=== PATIENT | female | born 1985 | race Caucasian/White ===

== ENCOUNTER 2018-01-18 11:05 | Day surgery (SDC) | payer MEDICAID, SELFPAY ==
[2018-01-18 11:37] VITALS: BP 129/84; PULSE 77; RESP 16; TEMP 36.9; O2SAT 98; BMI 26.4
[2018-01-18] MEDS: Gabapentin 600 MG Tablet PO (11:44)
--- NOTE | 2018-01-18 12:45 | OV_PTH ---
PATIENT: KEYONA STARKS LOC: [facility] [place] U#:[id number] AGE/SX: 32/F ROOM: RE01/18/[address]: Dr. 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 AM:abdirahman 01/22/18 MICROSCOPIC DESCRIPTION Slides are reviewed. GROSS DESCRIPTION Received is one container labeled with the patient name and designated left ovarian cyst. The specimen consists of two irregular fragments of krueger soft tissue consistent with previously opened cyst that in aggregate measure 5 x 2 x 0.5 cm. The cyst wall measures 0.1 cm in thickness. Evs Attendant sections are submitted in 2 cassettes. / SJ:sp 01/19/18 TC: 5 CPT: 45005
[2018-01-18] MEDS: Bupivacaine Mpf 0.5% 30 ML VIAL (14:01)
--- NOTE | 2018-01-18 15:22 | DCINST_ITS ---
Discharge Diet: No Restrictions - Increase fluid intake for the next 48 hours., Light diet - advance as tolerated - Avoid fatty, greasy, heavy foods and carbonation until you have a normal bowel movement. Discharge Activity: Return to Normal Activity, May Drive - when you are no longer taking pain/narcotic meds., May Shower, May Take a Tub Bath - in 7 days Return to work on:: 01/22/18 May shower in (days): 1 May resume sexual activity in: 1 week Lifting Restrictions: 15 lbs x 1 week Additional Activity Instructions:: Ambulate often the next week after surgery. Nothing in the vagina for 5 days. Call your doctor if your incision/area has: Continuous Slow Oozing, Sudden Increased Bleeding, Increased Pain/ Swelling, Increased Redness, Foul Smelling Discharge Call your doctor if you observe: Fever of 101 or Higher Cleanse incision/area with: Soap & Water, - - Your incisions have skin glue, it can get wet Allergies/Adverse Reactions: Allergies No Known Allergies Allergy (Verified 01/11/18 11:29) Medications to take at Discharge Meloxicam [Mobic] 15 mg PO QHS 01/11/18 Metoprolol Tartrate [Lopressor (beta steve)] 50 mg PO DAILY 01/11/18 Ibuprofen [Motrin] 800 mg PO TID PRN PRN #60 tablet 01/18/18 Oxycodone HCl/Acetaminophen [Percocet 5/325] 1 - 2 tablet PO Q8 PRN 4 Days #14 tablet 01/18/18 The following prescriptions were given: Ibuprofen [Motrin] 800 mg PO TID PRN PRN #60 tablet PRN Reason: Pain Oxycodone HCl/Acetaminophen [Percocet 5/325] 1 - 2 tablet PO Q8 PRN 4 Days #14 tablet PRN Reason: Pain Primary Care Physician: Ary Barrios MD [Primary Care Provider] - Test Results: Test results from this visit will be discussed in further detail at your follow- up appointment, if applicable. Please Follow Up With: Reema Arreola MD - [phone] When: 1-2 weeks or as needed
--- NOTE | 2018-01-18 15:23 | PCM.OPRPT ---
Report of Operation Date of Procedure: 01/18/18 Pre-Operative Diagnosis: Chronic LLQ, dyspareunia Post-Operative Diagnosis: Same + extensive adhesions of sigmoid colon to vaginal cuff Surgery/Procedure Performed:: Laparoscopic left ovarian cystectomy with extensive lysis of adhesions of the rectosigmoid away from the left pelvic sidewall and vaginal cuff Description of Surgical Findings:: Normal-appearing right ovary. Left ovary with approximately 4 cm simple appearing cyst. Tubes and uterus are surgically absent. Normal-appearing upper abdomen peritoneal cavity. In the pelvis there was a very dense adhesion of the rectosigmoid to the vaginal cuff and left pelvic sidewall. It did suspend the rectosigmoid in this area and cause a rather abrupt change in direction of the rectosigmoid. nickel operator: Lexie Payton nickel operator: Vasu De La Paz MS3 Type of Anesthesia:: General Anesthesiologist: Hilda Meier Special Medications: none Specimen's removed: let ovarian cyst wall Drains: none Estimated Blood Loss (mL): 20cc Fluids Replaced: 1600 cc Description of Procedure: The patient was taken to the operating room where she was prepped and draped in the dorsolithotomy position. A sponge stick was placed in the vagina. Attention was turned to the abdomen. All port sites were infiltrated with 0.5% Marcaine before skin incisions were made. A 5 mm left upper quadrant incision was made after anesthesia drain her stomach. This entry was chosen because of the patient's previous umbilical hernia repair.. The anterior abdominal wall was tented up with 2 towel clamps while a 5 mm blade less trocar and sleeve were directly inserted. Intraperitoneal placement was confirmed with the laparoscope. The pneumoperitoneum was created and the underlying abdominal contents were intact. The patient was placed in Trendelenburg. A 5mm left lower quadrant port was placed under direct visualization lateral to the inferior epigastric vessels. The bowel was swept away and the above findings were noted. Vision was made to place another left lower quadrant port approximately 4 cm below the other one to allow for manipulation and dissection of the bowel adhesion and the ovarian cyst. I began to bluntly and sharply dissect away the sigmoid adhesions from the left lateral pelvic sidewall. Some of the adhesions with the epiploica were filmy and came down easily. Care was taken and I only used cautery at a couple of places where I identified a vessel. I isolated it down to where just the knuckle of the sigmoid was attached densely to the vaginal cuff. It was difficult to delineate any kind of separation between the 2 structures. Sharp dissection was then made to carefully dissect the remaining knuckle of sigmoid off of the vaginal cuff. Decision was made to take down these dense adhesions because the patient has had significant dyspareunia. With the way with the bowel was both adhered to and suspended from the vaginal cuff and the abrupt direction change of the bowel in that area, I felt clinically that this could be at least partial causation of her dyspareunia. The dissection of this took approximately 45 minutes. At the end, the bowel itself was intact and a small piece of vaginal cuff remained on the loop of sigmoid that had been suspended. The left ovarian cyst was then incised on the antimesenteric portion of the ovary. Clear straw-colored fluid returned and was suctioned out of the pelvis. The ovarian cyst wall was peeled out from the underlying ovarian tissue. This was removed through 1 of the 5 mm ports. At this point the operative field was examined and hemostasis was noted. Some Ilda was placed over the ovarian cyst and care was taken to fold the ovarian george over where the cyst had been removed. Ilda was also placed over the previous adhesion areas. The lateral ports were removed under direct visualization and no active bleeding was noted. The pneumoperitoneum was released. The skin incisions were closed with Monocryl suture in a subcuticular fashion and skin glue by the PRETZEL COOKER with me present in the operative suite.. The vaginal instruments were removed and the vaginal sweep was completed by me. The procedure was performed by me with assistance other than as dictated above. All sponge and needle counts were correct and the patient was taken to the recovery room in stable condition. Grafts/Implants Used: none - Complications none - Admit VTE Documentation VTE Present on Admission: No VTE Mechan Device Prophylaxis: SCD's VTE Pharm Prophylaxis ordered?: No Reason prophylaxis not ordered:: Procedure Not Indicated
[2018-01-18 15:30] VITALS: BP 110/76; BP 129/84; PULSE 78; RESP 15; TEMP 36.4; O2SAT 92
--- NOTE | 2018-01-18 15:32 | OP.PCM_ITS ---
Report of Operation Date of Procedure: 01/18/18 Pre-Operative Diagnosis: Chronic LLQ, dyspareunia Post-Operative Diagnosis: Same + extensive adhesions of sigmoid colon to vaginal cuff Surgery/Procedure Performed:: Laparoscopic left ovarian cystectomy with extensive lysis of adhesions of the rectosigmoid away from the left pelvic sidewall and vaginal cuff Description of Surgical Findings:: Normal-appearing right ovary. Left ovary with approximately 4 cm simple appearing cyst. Tubes and uterus are surgically absent. Normal-appearing upper abdomen peritoneal cavity. In the pelvis there was a very dense adhesion of the rectosigmoid to the vaginal cuff and left pelvic sidewall. It did suspend the rectosigmoid in this area and cause a rather abrupt change in direction of the rectosigmoid. beef skinner: Lexie Payton beef skinner: Vasu De La Paz MS3 Type of Anesthesia:: General Anesthesiologist: Hilda Meier Special Medications: none Specimen's removed: let ovarian cyst wall Drains: none Estimated Blood Loss (mL): 20cc Fluids Replaced: 1600 cc Description of Procedure: The patient was taken to the operating room where she was prepped and draped in the dorsolithotomy position. A sponge stick was placed in the vagina. Attention was turned to the abdomen. All port sites were infiltrated with 0.5% Marcaine before skin incisions were made. A 5 mm left upper quadrant incision was made after anesthesia drain her stomach. This entry was chosen because of the patient's previous umbilical hernia repair.. The anterior abdominal wall was tented up with 2 towel clamps while a 5 mm blade less trocar and sleeve were directly inserted. Intraperitoneal placement was confirmed with the laparoscope. The pneumoperitoneum was created and the underlying abdominal contents were intact. The patient was placed in Trendelenburg. A 5mm left lower quadrant port was placed under direct visualization lateral to the inferior epigastric vessels. The bowel was swept away and the above findings were noted. Vision was made to place another left lower quadrant port approximately 4 cm below the other one to allow for manipulation and dissection of the bowel adhesion and the ovarian cyst. I began to bluntly and sharply dissect away the sigmoid adhesions from the left lateral pelvic sidewall. Some of the adhesions with the epiploica were filmy and came down easily. Care was taken and I only used cautery at a couple of places where I identified a vessel. I isolated it down to where just the knuckle of the sigmoid was attached densely to the vaginal cuff. It was diffi cult to delineate any kind of separation between the 2 structures. Sharp dissection was then made to carefully dissect the remaining knuckle of sigmoid off of the vaginal cuff. Decision was made to take down these dense adhesions because the patient has had significant dyspareunia. With the way with the bowel was both adhered to and suspended from the vaginal cuff and the abrupt direction change of the bowel in that area, I felt clinically that this could be at least partial causation of her dyspareunia. The dissection of this took approximately 45 minutes. At the end, the bowel itself was intact and a small piece of vaginal cuff remained on the loop of sigmoid that had been suspended. The left ovarian cyst was then incised on the antimesenteric portion of the ovary. Clear straw-colored fluid returned and was suctioned out of the pelvis. The ovarian cyst wall was peeled out from the underlying ovarian tissue. This was removed through 1 of the 5 mm ports. At this point the operative field was examined and hemostasis was noted. Some Ilda was placed over the ovarian cyst and care was taken to fold the ovarian george over where the cyst had been removed. Ilda was also placed over the previous adhesion areas. The lateral ports were removed under direct visualization and no active bleeding was noted. The pneumoperitoneum was released. The skin incisions were closed with Monocryl suture in a subcuticular fashion and skin glue by the HISTOLOGY SUPERVISOR with me present in the operative suite.. The vaginal instruments were removed and the vaginal sweep was completed by me. The procedure was performed by me with assistance other than as dictated above. All sponge and needle counts were correct and the patient was taken to the recovery room in stable condition. Grafts/Implants Used: none - Complications none - Admit VTE Documentation VTE Present on Admission: No VTE Mechan Device Prophylaxis: SCD's VTE Pharm Prophylaxis ordered?: No Reason prophylaxis not ordered:: Procedure Not Indicated
[2018-01-18 15:45] VITALS: BP 106/72; BP 129/84; PULSE 84; RESP 16; O2SAT 100
[2018-01-18 15:50] VITALS: BP 109/64; BP 129/84; PULSE 73; RESP 16; TEMP 36.4; O2SAT 98
[2018-01-18 16:45] VITALS: BP 104/78; BP 129/84; PULSE 77; RESP 16; TEMP 36.6; O2SAT 99
== END 2018-01-18 16:52 | disposition home or self-care (01) ==
LOC: SDC 11:06 → AC 11:10
PROVIDERS: Family Provider Family Medicine; PCP Family Medicine; Referring Provider Obstetrics & Gynecology; Visit Provider Obstetrics & Gynecology
PROC: (CPT 58662; principal; 2018-01-18 12:30)
DX: D27.1 Benign neoplasm of left ovary (principal); N73.6 Female pelvic peritoneal adhesions (postinfective); N94.10 Unspecified dyspareunia; G89.29 Other chronic pain; I10 Essential (primary) hypertension; F17.210 Nicotine dependence, cigarettes, uncomplicated; Z79.899 Other long term (current) drug therapy
CPT/HCPCS: 58662; 88305; J7120; J2405

== ENCOUNTER 2018-02-23 16:00 | Outpatient (RCR) | payer MEDICAID, SELFPAY ==
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
--- NOTE | 2018-03-12 15:49 | HP.PTDCNRP_ITS ---
HP - Discharge Summary (1) - Patient Information KEYONA STARKS was seen in my office for initial evaluation on 02/07/18. The following Plan of Care was established for this patient: Initial Frequency: 2x /Week Initial Duration: 4 Weeks - Anticipated Interventions Patient/Client Instruction: Educate patient on: Condition, Plan of Care For the Purpose of:: To decrease pain, To increase ROM, To improve muscle perf ormance and motor function, To improve ability to perform ADL's, To increase tolerance to activity/condition/position, To improve ability of physical actions for home/community/work/leisure, To improve health of tissue, To decrease soft tissue restriction, To improve ability to perform tasks related to life management Therapeutic Exercise to Include: Flexibilty training, Passive ROM, Active ROM For the Purpose of:: To decrease pain, To increase ROM, To improve muscle performance and motor function, To improve ability to perform ADL's, To improve health of tissue, To decrease soft tissue restriction, To increase flexibility/ROM, To improve ability to perform tasks related to life management Manual Therapy Techniques to Include: Soft tissue mobilization For the Purpose of:: To decrease pain, To increase ROM, To improve nutrient delivery to tissue, To increase oxygenation perfusion, To improve health of tissue, To decrease soft tissue restriction Thermo therapy (hot pack): Yes Ultrasound (thermal/non thermal): Yes For the Purpose of:: To decrease pain, To decrease swelling/inflammation, To improve nutrient delivery to tissue, To increase oxygenation perfusion, To improve health of tissue, To decrease soft tissue restriction This patient was last seen in our office 02/23/18. Pertinent comments regarding their Physical therapy will appear below: Patient seen for cervical pain with tx STM/US ,pain same . Patient RTD for for evalutaion.Thus is d/c. At this point I will be discontinuing this patient from physical therapy. I would be happy to see this patient again in the future if found appropriate by the physician. Thank you! Darrion Dale, PT, Cert MDT, OCS
--- OUTSIDE RECORDS SUMMARY | 2018-04-04 23:53 | XMS RPT_ITS ---
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 Present on Admission: No VTE Mechan Device Prophylaxis: SCD's VTE Pharm Prophylaxis ordered?: No Reason prophylaxis not ordered:: Procedure Not Indicated 01/18/18 1532 <Electronically signed by Elie Berry MD> Date Elie Berry MD CC: Beti Barrios DO; Elie Berry MD Signed DISCHARGE INSTRUCTION Observed: 01/18/2018 Status: F Source: [place] 3:22 PM [facility] RE[facility]ITORY [facility] Medical Records Department [address] [place] [id number] Instructions for Home/Discharge Instructions 01/18/18 1520 MR#: [id number] Acct: [id number] Name: LESLY STARKS Rep #: [id number] : 1985 32 From: Elie Berry MD PCP: Beti Barrios DO Status: REG [facility] Discharge Diet: No Restrictions - Increase fluid intake for the next 48 hours., Light diet - advance as tolerated - Avoid fatty, greasy, heavy foods and carbonation until you have a normal bowel movement. Discharge Activity: Return to Normal Activity, May Drive - when you are no longer taking pain/narcotic meds., May Shower, May Take a Tub Bath - in 7 days Return to work on:: 01/22/18 May shower in (days): 1 May resume sexual activity in: 1 week Lifting Restrictions: 15 lbs x 1 week Additional Activity Instructions:: Ambulate often the next week after surgery. Nothing in the vagina for 5 days. Call your doctor if your incision/area has: Continuous Slow Oozing, Sudden Increased Bleeding, Increased Pain/ Swelling, Increased Redness, Foul Smelling Discharge Call your doctor if you observe: Fever of 101 or Higher Cleanse incision/area with: Soap AND Water, - - Your incisions have skin glue, it can get wet Allergies/Adverse Reactions: Allergies No Known Allergies Allergy (Verified 01/11/18 11:29) Medications to take at Discharge Meloxicam [Mobic] 15 mg PO QHS 01/11/18 Metoprolol Tartrate [Lopressor (beta steve)] 50 mg PO DAILY 01/11/18 Ibuprofen [Motrin] 800 mg PO TID PRN PRN #60 tablet 01/18/18 Oxycodone HCl/Acetaminophen [Percocet 5/325] 1 - 2 tablet PO Q8 PRN 4 Days #14 tablet 01/18/18 The following prescriptions were given: Ibuprofen [Motrin] 800 mg PO TID PRN PRN #60 tablet PRN Reason: Pain Oxycodone HCl/Acetaminophen [Percocet 5/325] 1 - 2 tablet PO Q8 PRN 4 Days #14 tablet PRN Reason: Pain Primary Care Physician: Beti Barrios MD [Primary Care Provider] - Test Results: Test results from this visit will be discussed in further detail at your follow-up appointment, if applicable. Please Follow Up With: Elie Berry MD - [phone] When: 1-2 weeks or as needed 01/18/18 1522 <Electronically signed by Elie Berry MD> Date Elie Berry MD CC: Beti Barrios DO OVARY (CHOOSE SIDE) Observed: 01/18/2018 Status: F Source: [place] 12:45 PM [facility] REPOS[facility] Patient: LESLY STARKS : 1985 (32/F) Acct Num: [id number] Phys: Elie Berry MD Unit Num: [id number] Loc: [facility] Specimen: [id number] Received: 01/19/18900 Spec Type: OVARY TISSUES 1 TISSUES: OVARIAN CYST GROSS DESCRIPTION Received is one container labeled with the patient name and designated left ovarian cyst. The specimen consists of two irregular fragments of krueger soft tissue consistent with previously opened cyst that in aggregate measure 5 x 2 x 0.5 cm. The cyst wall measures 0.1 cm in thickness. 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 / SJ:sp 01/19/18 TC: 5 CPT: 83746 HEADER OPERATION: Left laparoscopic ovarian cystectomy, lysis of sigmoid adhesions PRE-OP DIAGNOSIS: LLQ pain and persistent left ovarian cyst TISSUE SUBMITTED: Left ovarian cyst MICROSCOPIC DESCRIPTION Slides are reviewed. 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 AM:abdirahman 01/22/18 Signed Rizwan Batres 01/22/18 <signature on file> Performed By: #### POV #### [facility] [address] [place], [address] PROGRESS Observed: 01/08/2018 Status: COMPLETED Source: [place] 1:31 PM [facility] HNO ID: [id number] Author: Elie Berry Service: (none) Author Type: Physician Type: Progress Notes Filed: 01/08/2018 1:45 PM Note Text: Lesly Starks is a 32 year old female who presents for problem visit for f/u LLQ pain. HPI: C/o LLQ pain. Quality of life issue. No N/V. Not cyclic PAST MEDICAL HISTORY Diagnosis Date - Abnormal glandular Papanicolaou smear of cervix 2004 Abn. Pap smear (cervix) - Encounter for insertion or removal of intrauterine contraceptive device 05/05/2010 Mirena - IBS (irritable bowel syndrome) - Other acne - Other and unspecified anemias 2003 IN PAST - Pityriasis rosea - depression 2004 - Unspecified asthma(493.90) EXCERISE INDUCED PAST SURGICAL HISTORY Procedure Laterality Date - COL[facility]COP [facility]/ [facility] 06/17/15 Colonoscopy (MAC) - COLPOSCOPY (VAGINOSCOPY) Colposcopy - EGD W/O OR W/BRUSH/WASH 06/07/2013 EGD - LAPAROSCOPIC CHOLEYCYSTECTOMY 12/09/2014 umbilical hernia repair with suture - REMOVAL OF TONSILS,<12 Y/O 2004 Tonsillectomy - SALPINGECTOMY 12/09/14 bilateral salpingectomy - VAGINAL HYSTERECTOMY 04/07/2016 [facility] FAMILY HISTORY Problem Relation Age of Onset - other (herniated disc) Mother Back and neck - Heart Father - Breast Cancer Maternal Grandmother - Hypertension Maternal Grandmother - Hypertension Maternal Grandfather - Diabetes Maternal Grandfather - Heart Maternal Grandfather - Stroke Maternal Grandfather - Cancer Paternal Grandmother JAW - Breast Cancer Paternal Grandmother - Diabetes Other MG AUNT - Diabetes Other MG UNCLE - Breast Cancer Maternal Aunt Social History Marital status: Spouse name: Toñito Years of education: 12 Number of children: 5 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 Social History Main Topics Smoking status: Current Every Day Smoker Packs/day: 1.00 Years: 11.00 Types: Cigarettes Start date: 03/10/2003 Smokeless tobacco: Never Used Alcohol use: No Drug use: No Sexual activity: Yes Partners with: Male control/protection: Surgical Comment: bilateral salpingectomy 2014 Other Topics Concern No BLOOD TRANSFUSIONS No CAFFEINE Yes Comment:5-6 CANS OF POP A DAY OCCUPATIONAL EXPOSURE No HOBBY HAZARD No SLEEP CONCERN No STRESS CONCERN No WEIGHT CONCERN No DIET No BACK CARE No EXERCISE No BIKE HELMET No SEAT BELT Yes Comment:DOESNT WEAR SEAT BELT SELF EXAMS Yes Comment:DOESNT DO SBE Current Outpatient Prescriptions: meloxicam (MOBIC) 15 mg tablet Take 15 mg by mouth daily at bedtime. metoprolol succinate ER (TOPROL XL) 50 mg 24 hr tablet iv contrast (will be provided with radiology test) CT ABD/PEL -Inject, intravenously, once for 1 dose.No IV access, insert saline lock prior to the beginning of sedation, infusion, injection of imaging exam. Discontinue saline lock post exam. If Pt. has a central line or IVAD, may access for administration according to line specific nursing protocol. Once exam is complete flush line and de-access according to line specific nursing protocol in the CT contrast administration guidelines link. enteric contrast (will be provided with radiology test) For CT ABD/PEL W IVCON Routine order Administer, As Directed One Time Only, via Oral, Rectal, both Oral and Rectal, Enteric Tube, Stoma or Indwelling Catheter, Enteric Contrast as designated per enteric contrast guidelines No current facility-administered medications for this visit. Allergies As of Date: 01/08/2018 (No Known Allergies) Fully Assessed 01/08/2018 REVIEW OF SYSTEMS General- no fevers or chills, no new illness Cardiac- no CP/SOB Allergies and current medication updated:Yes EXAM: BP 102/64 Pulse 72 Resp 16 Ht 5' 8 (1.73m) Wt 175 lb (79.4kg) LMP 03/17/2016 BMI 26.61 kg/(m2). GENERAL: pleasant, female in no apparent distress HEENT: Normocephalic, atraumatic, mucus membranes moist and no lesions NECK: Supple, full range of motion, no adenopathy and thyroid normal DERMATOLOGY: Normal, without lesions, non-icteric and non-hirsute ABDOMEN: soft, non-tender and no masses NEURO: alert and oriented x3,exam grossly non-focal EXTREMITIES: normal ASSESSMENT AND PLAN: LLQ pain, left ovarian cyst plan left ovarian cystectomy. D/w her cannot guarantee resolution of pain, even if oophorectomy but would recommend keep ovary if possible. Elie Berry MD HISTORY PHYSICAL Observed: 01/08/2018 Status: COMPLETED Source: [place] 1:21 PM [facility] HNO ID: [id number] Author: Elie Berry Service: (none) Author Type: Physician Type: HANDP Filed: 01/08/2018 1:45 PM Note Text: Pre-Op History and Physical HPI: The patient is a 32 year old female presenting for pre-operative visit. She is scheduled for laparoscopic left ovarian cystectomy , for LLQ pain and persistent left ovarian cyst on 01/18/19. Procedure discussed along with risks, benefits and complications. Other alternatives discussed for management. Consent form signed? Yes. PAST MEDICAL HISTORY Diagnosis Date - Abnormal glandular Papanicolaou smear of cervix 2004 Abn. Pap smear (cervix) - Encounter for insertion or removal of intrauterine contraceptive device 05/05/2010 Mirena - IBS (irritable bowel syndrome) - Other acne - Other and unspecified anemias 2003 IN PAST - Pityriasis rosea - depression 2004 - Unspecified asthma(493.90) EXCERISE INDUCED PAST SURGICAL HISTORY Procedure Laterality Date - [facility]COP W/ [facility] 06/17/15 Colonoscopy (MAC) - COLPOSCOPY (VAGINOSCOPY) Colposcopy - EGD W/O OR W/BRUSH/WASH 06/07/2013 EGD - LAPAROSCOPIC CHOLEYCYSTECTOMY 12/09/2014 umbilical hernia repair with suture - REMOVAL OF TONSILS,<12 Y/O 2003 Tonsillectomy - SALPINGECTOMY 12/09/14 bilateral salpingectomy - VAGINAL HYSTERECTOMY 04/07/2016 [facility] Current Outpatient Prescriptions: meloxicam (MOBIC) 15 mg tablet Take 15 mg by mouth daily at bedtime. Disp: Rfl: 0 metoprolol succinate ER (TOPROL XL) 50 mg 24 hr tablet Disp: Rfl: iv contrast (will be provided with radiology test) CT ABD/PEL -Inject, intravenously, once for 1 dose.No IV access, insert saline lock prior to the beginning of sedation, infusion, injection of imaging exam. Discontinue saline lock post exam. If Pt. has a central line or IVAD, may access for administration according to line specific nursing protocol. Once exam is complete flush line and de-access according to line specific nursing protocol in the CT contrast administration guidelines link. Disp: 1 Each Rfl: 0 enteric contrast (will be provided with radiology test) For CT ABD/PEL W IVCON Routine order Administer, As Directed One Time Only, via Oral, Rectal, both Oral and Rectal, Enteric Tube, Stoma or Indwelling Catheter, Enteric Contrast as designated per enteric contrast guidelines Disp: 1 Each Rfl: 0 No current facility-administered medications for this visit. ALLERGIES: Patient has no known allergies. 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 Social History Main Topics Smoking status: Current Every Day Smoker Packs/day: 1.00 Years: 11.00 Types: Cigarettes Start date: 03/10/2003 Smokeless tobacco: Never Used Alcohol use: No Drug use: No Sexual activity: Yes Partners with: Male control/protection: Surgical Comment: bilateral salpingectomy 2014 Other Topics Concern No BLOOD TRANSFUSIONS No CAFFEINE Yes Comment:5-6 CANS OF POP A DAY OCCUPATIONAL EXPOSURE No HOBBY HAZARD No SLEEP CONCERN No STRESS CONCERN No WEIGHT CONCERN No DIET No BACK CARE No EXERCISE No BIKE HELMET No SEAT BELT Yes Comment:DOESNT WEAR SEAT BELT SELF EXAMS Yes Comment:DOESNT DO SBE FAMILY HISTORY: FAMILY HISTORY Problem Relation Age of Onset - other (herniated disc) Mother Back and neck - Heart Father - Breast Cancer Maternal Grandmother - Hypertension Maternal Grandmother - Hypertension Maternal Grandfather - Diabetes Maternal Grandfather - Heart Maternal Grandfather - Stroke Maternal Grandfather - Cancer Paternal Grandmother JAW - Breast Cancer Paternal Grandmother - Diabetes Other MG AUNT - Diabetes Other MG UNCLE - Breast Cancer Maternal Aunt REVIEW OF SYMPTOMS: GENERAL: denies fevers or chills ENDOCRINOLOGY: has not been on steroids Cardiology : denies palpitations or chest pain Respiratory: denies SOB or cough Hematology: denies history of prolonged bleeding or easy bruising or VTE Allergy: Denies history of personal or family history of allergy to anesthesia PHYSICAL EXAMINATION: VITALS: Last menstrual period 03/17/2016. GENERAL: The patient is well nourished, well hydrated in no acute distress. , The patient is oriented to time, place, and person. NECK: Supple. No lynphadenopathy, normal thyroid, no thyromegaly. LUNGS: Clear to auscultation bilaterally. no wheezes, rhonchi or rales HEART: Regular rate and rhythm, Normal heart sounds and No murmurs or gallops IMPRESSION: LLQ pain, left ovarian cyst PLAN: The risks/benefits/alternatives and personal involved for the planned laparoscopic left ovarian cystectomy, possible oophorectomy were reviewed with the patient. Her questions were answered to her satisfaction and she desires to proceed. Consent was signed. I reviewed with her postop instructions and expectations. I have reviewed and updated past medical and surgical history, medications and allergies Elie Berry M.D. CNOV Observed: 01/08/2018 Status: COMPLETED Source: [place] 1:20 PM [facility] REPOSITORY Office Visit (WOOB) LESLY STARKS ([id number]) 1985 F Date Time Provider Department 01/08/18 1:20 PM ELIE BERRY WOOB During your visit today, we recorded the following information about you: Pulse Respiration Blood pressure Weight 72/minute 16/minute 102/64 79.4 kg Height 1.727 m Elie Berry MD 01/08/2018 1:45 PM Signed Pre-Op History and Physical HPI: The patient is a 32 year old female presenting for pre- operative visit. She is scheduled for laparoscopic left ovarian cystectomy , for LLQ pain and persistent left ovarian cyst on 01/18/19. Procedure discussed along with risks, benefits and complications. Other alternatives discussed for management. Consent form signed? Yes. PAST MEDICAL HISTORY Diagnosis Date - Abnormal glandular Papanicolaou smear of cervix 2004 Abn. Pap smear (cervix) - Encounter for insertion or removal of intrauterine contraceptive device 05/05/2010 Mirena - IBS (irritable bowel syndrome) - Other acne - Other and unspecified anemias 2002 IN PAST - Pityriasis rosea - depression 2004 - Unspecified asthma(493.90) EXCERISE INDUCED PAST SURGICAL HISTORY Procedure Laterality Date - COLONOSCOP W/ [facility] 06/17/15 Colonoscopy (MAC) - COLPOSCOPY (VAGINOSCOPY) Colposcopy - EGD W/O OR W/BRUSH/WASH 06/07/2013 EGD - LAPAROSCOPIC CHOLEYCYSTECTOMY 12/09/2014 umbilical hernia repair with suture - REMOVAL OF TONSILS,<12 Y/O 2003 Tonsillectomy - SALPINGECTOMY 12/09/14 bilateral salpingectomy - VAGINAL HYSTERECTOMY 04/07/2016 [facility] Current Outpatient Prescriptions: meloxicam (MOBIC) 15 mg tablet Take 15 mg by mouth daily at bedtime. Disp: Rfl: 0 metoprolol succinate ER (TOPROL XL) 50 mg 24 hr tablet Disp: Rfl: iv contrast (will be provided with radiology test) CT ABD/PEL -Inject, intravenously, once for 1 dose.No IV access, insert saline lock prior to the beginning of sedation, infusion, injection of imaging exam. Discontinue saline lock post exam. If Pt. has a central line or IVAD, may access for administration according to line specific nursing protocol. Once exam is complete flush line and de-access according to line specific nursing protocol in the CT contrast administration guidelines link. Disp: 1 Each Rfl: 0 enteric contrast (will be provided with radiology test) For CT ABD/PEL W IVCON Routine order Administer, As Directed One Time Only, via Oral, Rectal, both Oral and Rectal, Enteric Tube, Stoma or Indwelling Catheter, Enteric Contrast as designated per enteric contrast guidelines Disp: 1 Each Rfl: 0 No current facility-administered medications for this visit. ALLERGIES: Patient has no known allergies. 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 Social History Main Topics Smoking status: Current Every Day Smoker Packs/day: 1.00 Years: 11.00 Types: Cigarettes Start date: 03/10/2003 Smokeless tobacco: Never Used Alcohol use: No Drug use: No Sexual activity: Yes Partners with: Male control/protection: Surgical Comment: bilateral salpingectomy 2014 Other Topics Concern No BLOOD TRANSFUSIONS No CAFFEINE Yes Comment:5-6 CANS OF POP A DAY OCCUPATIONAL EXPOSURE No HOBBY HAZARD No SLEEP CONCERN No STRESS CONCERN No WEIGHT CONCERN No DIET No BACK CARE No EXERCISE No BIKE HELMET No SEAT BELT Yes Comment:DOESNT WEAR SEAT BELT SELF EXAMS Yes Comment:DOESNT DO SBE FAMILY HISTORY: FAMILY HISTORY Problem Relation Age of Onset - other (herniated disc) Mother Back and neck - Heart Father - Breast Cancer Maternal Grandmother - Hypertension Maternal Grandmother - Hypertension Maternal Grandfather - Diabetes Maternal Grandfather - Heart Maternal Grandfather - Stroke Maternal Grandfather - Cancer Paternal Grandmother JAW - Breast Cancer Paternal Grandmother - Diabetes Other MG AUNT - Diabetes Other MG UNCLE - Breast Cancer Maternal Aunt REVIEW OF SYMPTOMS: GENERAL: denies fevers or chills ENDOCRINOLOGY: has not been on steroids Cardiology : denies palpitations or chest pain Respiratory: denies SOB or cough Hematology: denies history of prolonged bleeding or easy bruising or VTE Allergy: Denies history of personal or family history of allergy to anesthesia PHYSICAL EXAMINATION: VITALS: Last menstrual period 03/17/2016. GENERAL: The patient is well nourished, well hydrated in no acute distress. , The patient is oriented to time, place, and person. NECK: Supple. No lynphadenopathy, normal thyroid, no thyromegaly. LUNGS: Clear to auscultation bilaterally. no wheezes, rhonchi or rales HEART: Regular rate and rhythm, Normal heart sounds and No murmurs or gallops IMPRESSION: LLQ pain, left ovarian cyst PLAN: The risks/benefits/alternatives and personal involved for the planned laparoscopic left ovarian cystectomy, possible oophorectomy were reviewed with the patient. Her questions were answered to her satisfaction and she desires to proceed. Consent was signed. I reviewed with her postop instructions and expectations. I have reviewed and updated past medical and surgical history, medications and allergies Elie Berry M.D. Elie Berry MD 01/08/2018 1:45 PM Signed Lesly Starks is a 32 year old female who presents for problem visit for f/u LLQ pain. HPI: C/o LLQ pain. Quality of life issue. No N/V. Not cyclic PAST MEDICAL HISTORY Diagnosis Date - Abnormal glandular Papanicolaou smear of cervix 2004 Abn. Pap smear (cervix) - Encounter for insertion or removal of intrauterine contraceptive device 05/05/2010 Mirena - IBS (irritable bowel syndrome) - Other acne - Other and unspecified anemias 2003 IN PAST - Pityriasis rosea - depression 2004 - Unspecified asthma(493.90) EXCERISE INDUCED PAST SURGICAL HISTORY Procedure Laterality Date - COLONOSCOP W/ OR W/O [facility] SPEC 06/17/15 Colonoscopy (MAC) - COLPOSCOPY (VAGINOSCOPY) Colposcopy - EGD W/O OR W/BRUSH/WASH 06/07/2013 EGD - LAPAROSCOPIC CHOLEYCYSTECTOMY 12/09/2014 umbilical hernia repair with suture - REMOVAL OF TONSILS,<12 Y/O 2003 Tonsillectomy - SALPINGECTOMY 12/09/14 bilateral salpingectomy - VAGINAL HYSTERECTOMY 04/07/2016 [facility] FAMILY HISTORY Problem Relation Age of Onset - other (herniated disc) Mother Back and neck - Heart Father - Breast Cancer Maternal Grandmother - Hypertension Maternal Grandmother - Hypertension Maternal Grandfather - Diabetes Maternal Grandfather - Heart Maternal Grandfather - Stroke Maternal Grandfather - Cancer Paternal Grandmother JAW - Breast Cancer Paternal Grandmother - Diabetes Other MG AUNT - Diabetes Other MG UNCLE - Breast Cancer Maternal Aunt Social History Marital status: Spouse name: Toñito Years of education: 12 Number of children: 5 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 Social History Main Topics Smoking status: Current Every Day Smoker Packs/day: 1.00 Years: 11.00 Types: Cigarettes Start date: 03/10/2003 Smokeless tobacco: Never Used Alcohol use: No Drug use: No Sexual activity: Yes Partners with: Male control/protection: Surgical Comment: bilateral salpingectomy 2014 Other Topics Concern No BLOOD TRANSFUSIONS No CAFFEINE Yes Comment:5-6 CANS OF POP A DAY OCCUPATIONAL EXPOSURE No HOBBY HAZARD No SLEEP CONCERN No STRESS CONCERN No WEIGHT CONCERN No DIET No BACK CARE No EXERCISE No BIKE HELMET No SEAT BELT Yes Comment:DOESNT WEAR SEAT BELT SELF EXAMS Yes Comment:DOESNT DO SBE Current Outpatient Prescriptions: meloxicam (MOBIC) 15 mg tablet Take 15 mg by mouth daily at bedtime. metoprolol succinate ER (TOPROL XL) 50 mg 24 hr tablet iv contrast (will be provided with radiology test) CT ABD/PEL -Inject, intravenously, once for 1 dose.No IV access, insert saline lock prior to the beginning of sedation, infusion, injection of imaging exam. Discontinue saline lock post exam. If Pt. has a central line or IVAD, may access for administration according to line specific nursing protocol. Once exam is complete flush line and de-access according to line specific nursing protocol in the CT contrast administration guidelines link. enteric contrast (will be provided with radiology test) For CT ABD/PEL W IVCON Routine order Administer, As Directed One Time Only, via Oral, Rectal, both Oral and Rectal, Enteric Tube, Stoma or Indwelling Catheter, Enteric Contrast as designated per enteric contrast guidelines No current facility-administered medications for this visit. Allergies As of Date: 01/08/2018 (No Known Allergies) Fully Assessed 01/08/2018 REVIEW OF SYSTEMS General- no fevers or chills, no new illness Cardiac- no CP/SOB Allergies and current medication updated:Yes EXAM: BP 102/64 Pulse 72 Resp 16 Ht 5' 8 (1.73m) Wt 175 lb (79.4kg) LMP 03/17/2016 BMI 26.61 kg/(m2). GENERAL: pleasant, female in no apparent distress HEENT: Normocephalic, atraumatic, mucus membranes moist and no lesions NECK: Supple, full range of motion, no adenopathy and thyroid normal DERMATOLOGY: Normal, without lesions, non-icteric and non-hirsute ABDOMEN: soft, non-tender and no masses NEURO: alert and oriented x3,exam grossly non-focal EXTREMITIES: normal ASSESSMENT AND PLAN: LLQ pain, left ovarian cyst plan left ovarian cystectomy. D/w her cannot guarantee resolution of pain, even if oophorectomy but would recommend keep ovary if possible. Elie Berry MD Referring Provider: SELF [[id number]] Allergies As of Date: 01/08/2018 (No Known Allergies) Date Reviewed: 01/08/2018 Reviewed by: Mena Liu Ma - Fully Assessed Reason for Visit: Pre-Op Visit [1235] Primary Visit Diagnosis:LLQ pain [R10.32] Other Visit Diagnosis:Simple ovarian cyst [N83.209] Prescriptions as of 01/08/2018 Sig: MELOXICAM 15 MG TABLET Take 15 mg by mouth daily at * METOPROLOL SUCCINATE ER 50 MG* IV CONTRAST (RADIOLOGY PROCED* CT ABD/PEL -Inject, intraveno* ENTERIC CONTRAST (RADIOLOGY P* For CT ABD/PEL W IVCON Routin* Problem List As Of Date 01/08/2018 Noted Resolved Supervision of Other Normal [Z34.80] INVALID FOR*01/27/2009 Unspecified High-Risk [O09.90] INVALID FOR*01/27/2009 Supervision of other normal [Z34.80] INVALID FOR*05/04/2010 Tobacco use [Z72.0] INVALID FOR* More... Subchorionic hemorrhage [O41.8X90, O46.8X9] INVALID FOR*02/11/2014 More... Supervision of other normal [Z34.80] INVALID FOR*09/23/2014 More... Family history of defect [Z82.79] INVALID FOR*12/24/2014 More... Cholelithiases [K80.20] INVALID FOR*12/24/2014 More... Sterilization [Z30.2] INVALID FOR*12/24/2014 More... Dysmenorrhea [N94.6] INVALID FOR*02/23/2017 Menorrhagia with regular cycle [N92.0] INVALID FOR*02/23/2017 Dyspareunia [FNV1341] INVALID FOR*02/23/2017 Adenomyosis [N80.0] INVALID FOR*02/23/2017 Cervical high risk HPV (human papillomavirus) t*INVALID FOR* More... IBS (irritable bowel syndrome) [K58.9] INVALID FOR* Lower abdominal pain [R10.30] INVALID FOR* Other chest pain [R07.89] INVALID FOR* Encounter Status:Closed by ELIE BERRY MD on 01/08/18 PROGRESS Observed: 01/01/2018 Status: COMPLETED Source: [place] 3:56 PM [facility] RE[facility] HNO ID: [id number] Author: Néstor Woodward Service: (none) Author Type: Physician Type: Progress Notes Filed: 01/01/2018 4:24 PM Note Text: IBS with constipation and diarrhea HPI: [email or web address] Starks is a 32 year old female who presents for IBS with constipation and diarrhea. She has been having more frequent and more severe abdominal pain; lower abdominal pain ; more on the left side. Constipation more common than diarrhea. No fever. No blood in the stool. She has episodes of bilateral chest pain which is relieved with burping and vomiting. Record Review: [facility] / Outside records reviewed. PAST MEDICAL HISTORY Diagnosis Date - Abnormal glandular Papanicolaou smear of cervix 2004 Abn. Pap smear (cervix) - Encounter for insertion or removal of intrauterine contraceptive device 05/05/2010 Mirena - IBS (irritable bowel syndrome) - Other acne - Other and unspecified anemias 2003 IN PAST - Pityriasis rosea - depression 2004 - Unspecified asthma(493.90) EXCERISE INDUCED PAST SURGICAL HISTORY Procedure Laterality Date - COLONOSCOP W/ OR W/O [facility] SPEC 06/17/15 Colonoscopy (MAC) - COLPOSCOPY (VAGINOSCOPY) Colposcopy - EGD W/O OR W/BRUSH/WASH 06/07/2013 EGD - LAPAROSCOPIC CHOLEYCYSTECTOMY 12/09/2014 umbilical hernia repair with suture - REMOVAL OF TONSILS,<12 Y/O 2003 Tonsillectomy - SALPINGECTOMY 12/09/14 bilateral salpingectomy - VAGINAL HYSTERECTOMY 04/07/2016 [facility] Allergies: ALLERGIES No Known Allergies Medications: metoprolol succinate ER (TOPROL XL) 50 mg 24 hr tablet linaclotide (LINZESS) 145 mcg cap Take 1 capsule by mouth once daily. iv contrast (will be provided with radiology test) CT ABD/PEL -Inject, intravenously, once for 1 dose.No IV access, insert saline lock prior to the beginning of sedation, infusion, injection of imaging exam. Discontinue saline lock post exam. If Pt. has a central line or IVAD, may access for administration according to line specific nursing protocol. Once exam is complete flush line and de-access according to line specific nursing protocol in the CT contrast administration guidelines link. enteric contrast (will be provided with radiology test) For CT ABD/PEL W IVCON Routine order Administer, As Directed One Time Only, via Oral, Rectal, both Oral and Rectal, Enteric Tube, Stoma or Indwelling Catheter, Enteric Contrast as designated per enteric contrast guidelines FAMILY HISTORY Problem Relation Age of Onset - other (herniated disc) Mother Back and neck - Heart Father - Breast Cancer Maternal Grandmother - Hypertension Maternal Grandmother - Hypertension Maternal Grandfather - Diabetes Maternal Grandfather - Heart Maternal Grandfather - Stroke Maternal Grandfather - Cancer Paternal Grandmother JAW - Breast Cancer Paternal Grandmother - Diabetes Other MG AUNT - Diabetes Other MG UNCLE - Breast Cancer Maternal Aunt Employer And Job Title: No employer specified ([employer]) Years Of Education Completed: 12 years Marital Status: to Toñito with 5 children Social History Substance Use Topics - Smoking status: Current Every Day Smoker Packs/day: 1.00 Years: 11.00 Types: Cigarettes Start date: 03/10/2003 - Smokeless tobacco: Never Used - Alcohol use No Review of Systems: Review of Systems Constitutional: Positive for fatigue. Respiratory: Positive for chest tightness. Cardiovascular: Positive for chest pain. Gastrointestinal: Positive for abdominal pain, constipation, diarrhea and nausea. Are you taking any blood thinners? No Physical Examination: BP 122/84 Pulse 77 Ht 5' 9 (1.75m) Wt 175 lb 8 oz (79.6kg) SpO2 98% LMP 03/17/2016 BMI 25.90 kg/(m2). Physical Exam Constitutional: She is oriented to person, place, and time. She appears well-developed and well-nourished. HENT: Head: Normocephalic. Eyes: Pupils are equal, round, and reactive to light. Conjunctivae and EOM are normal. Neck: Normal range of motion. Neck supple. Cardiovascular: Normal rate, regular rhythm, normal heart sounds and intact distal pulses. Pulmonary/Chest: Effort normal and breath sounds normal. Abdominal: Soft. Bowel sounds are normal. Musculoskeletal: Normal range of motion. Neurological: She is alert and oriented to person, place, and time. She has normal reflexes. Skin: Skin is warm and dry. Psychiatric: She has a normal mood and affect. Her behavior is normal. Judgment and thought content normal. Vitals reviewed. Assessment: Irritable bowel syndrome with both constipation and diarrhea Lower abdominal pain Other chest pain Plan: Office Visit on 01/01/18 -CT ABD/PEL W IVCON -CBC + DIFF -C-REACTIVE PROTEIN (CRP) -COMP METABOLIC PANEL 25-30 grams fiber diet Return in about 2 months (around 03/03/2018). Consultation requested by Dr. Barrios for an opinion regarding abdominal pain. My final recommendations will be communicated back to the requesting physician by way of shared Medical record or letter to requesting physician via [place] mail. I have confirmed and edited as necessary, the PFSH and ROS obtained by others. Néstor Woodward MD DATE: 01/01/18 TIME: 4:18 PM CNOV Observed: 01/01/2018 Status: COMPLETED Source: [place] 3:30 PM [facility] REPOSITORY Office Visit ([place]) RAUDELLESLY Tania ([id number]) 1985 F Date Time Provider Department 01/01/18 3:30 PM NÉSTOR WOODWARD During your visit today, we recorded the following information about you: Pulse Blood pressure Weight Height 77/minute 122/84 79.6 kg 1.753 m Néstor Woodward MD 01/01/2018 4:24 PM Signed IBS with constipation and diarrhea HPI: [email or web address] Marin Raudel is a 32 year old female who presents for IBS with constipation and diarrhea. She has been having more frequent and more severe abdominal pain; lower abdominal pain ; more on the left side. Constipation more common than diarrhea. No fever. No blood in the stool. She has episodes of bilateral chest pain which is relieved with burping and vomiting. Record Review: [facility] / Outside records reviewed. PAST MEDICAL HISTORY Diagnosis Date - Abnormal glandular Papanicolaou smear of cervix 2004 Abn. Pap smear (cervix) - Encounter for insertion or removal of intrauterine contraceptive device 05/05/2010 Mirena - IBS (irritable bowel syndrome) - Other acne - Other and unspecified anemias 2003 IN PAST - Pityriasis rosea - depression 2004 - Unspecified asthma(493.90) EXCERISE INDUCED PAST SURGICAL HISTORY Procedure Laterality Date - COLONOSCOP W/ OR W/O [facility] SPEC 06/17/15 Colonoscopy (MAC) - COLPOSCOPY (VAGINOSCOPY) Colposcopy - EGD W/O OR W/BRUSH/WASH 06/07/2013 EGD - LAPAROSCOPIC CHOLEYCYSTECTOMY 12/09/2014 umbilical hernia repair with suture - REMOVAL OF TONSILS,<12 Y/O 2003 Tonsillectomy - SALPINGECTOMY 12/09/14 bilateral salpingectomy - VAGINAL HYSTERECTOMY 04/07/2016 [facility] Allergies: ALLERGIES No Known Allergies Medications: metoprolol succinate ER (TOPROL XL) 50 mg 24 hr tablet linaclotide (LINZESS) 145 mcg cap Take 1 capsule by mouth once daily. iv contrast (will be provided with radiology test) CT ABD/PEL -Inject, intravenously, once for 1 dose.No IV access, insert saline lock prior to the beginning of sedation, infusion, injection of imaging exam. Discontinue saline lock post exam. If Pt. has a central line or IVAD, may access for administration according to line specific nursing protocol. Once exam is complete flush line and de-access according to line specific nursing protocol in the CT contrast administration guidelines link. enteric contrast (will be provided with radiology test) For CT ABD/PEL W IVCON Routine order Administer, As Directed One Time Only, via Oral, Rectal, both Oral and Rectal, Enteric Tube, Stoma or Indwelling Catheter, Enteric Contrast as designated per enteric contrast guidelines FAMILY HISTORY Problem Relation Age of Onset - other (herniated disc) Mother Back and neck - Heart Father - Breast Cancer Maternal Grandmother - Hypertension Maternal Grandmother - Hypertension Maternal Grandfather - Diabetes Maternal Grandfather - Heart Maternal Grandfather - Stroke Maternal Grandfather - Cancer Paternal Grandmother JAW - Breast Cancer Paternal Grandmother - Diabetes Other MG AUNT - Diabetes Other MG UNCLE - Breast Cancer Maternal Aunt Employer And Job Title: No employer specified ([employer]) Years Of Education Completed: 12 years Marital Status: to Toñito with 5 children Social History Substance Use Topics - Smoking status: Current Every Day Smoker Packs/day: 1.00 Years: 11.00 Types: Cigarettes Start date: 03/10/2003 - Smokeless tobacco: Never Used - Alcohol use No Review of Systems: Review of Systems Constitutional: Positive for fatigue. Respiratory: Positive for chest tightness. Cardiovascular: Positive for chest pain. Gastrointestinal: Positive for abdominal pain, constipation, diarrhea and nausea. Are you taking any blood thinners? No Physical Examination: BP 122/84 Pulse 77 Ht 5' 9 (1.75m) Wt 175 lb 8 oz (79.6kg) SpO2 98% LMP 03/17/2016 BMI 25.90 kg/(m2). Physical Exam Constitutional: She is oriented to person, place, and time. She appears well-developed and well-nourished. HENT: Head: Normocephalic. Eyes: Pupils are equal, round, and reactive to light. Conjunctivae and EOM are normal. Neck: Normal range of motion. Neck supple. Cardiovascular: Normal rate, regular rhythm, normal heart sounds and intact distal pulses. Pulmonary/Chest: Effort normal and breath sounds normal. Abdominal: Soft. Bowel sounds are normal. Musculoskeletal: Normal range of motion. Neurological: She is alert and oriented to person, place, and time. She has normal reflexes. Skin: Skin is warm and dry. Psychiatric: She has a normal mood and affect. Her behavior is normal. Judgment and thought content normal. Vitals reviewed. Assessment: Irritable bowel syndrome with both constipation and diarrhea Lower abdominal pain Other chest pain Plan: Office Visit on 01/01/18 -CT ABD/PEL W IVCON -CBC + DIFF -C-REACTIVE PROTEIN (CRP) -COMP METABOLIC PANEL 25-30 grams fiber diet Return in about 2 months (around 03/03/2018). Consultation requested by Dr. Barrios for an opinion regarding abdominal pain. My final recommendations will be communicated back to the requesting physician by way of shared Medical record or letter to requesting physician via [place] mail. I have confirmed and edited as necessary, the PFSH and ROS obtained by others. Néstor Woodward MD DATE: 01/01/18 TIME: 4:18 PM Referring Provider: TAMIR BARRIOS [[id number]] Allergies As of Date: 01/01/2018 (No Known Allergies) Date Reviewed: 01/01/2018 Reviewed by: Maggi Palacios LPN - Fully Assessed Reason for Visit: IBS with constipation and diarrhea [Other] Reason For Visit History Recorded Visit Diagnoses:Irritable bowel syndrome with both constipation and diarrhea [K58.2] Lower abdominal pain [R10.30] Other chest pain [R07.89] Order(s):francescoaclotide (LINZESS) 145 mcg capTake 1 capsule by mouth once daily.Disp: 30 capsuleRfl: 3 CBC + DIFF [SQCBCDIF] Order #: [id number] FUTURE C-REACTIVE PROTEIN (CRP) [SQCRP] Order #: [id number] FUTURE COMP METABOLIC PANEL [SQCMP] Order #: [id number] FUTURE CT ABD/PEL W IVCON [[id number]] Order #: [id number] FUTURE iv contrast (will be provided with radiology test)CT ABD/PEL -Inject, intravenously, once for 1 dose.No IV access, insert saline lock prior to the beginning of sedation, infusion, injection of imaging exam. Discontinue saline lock post exam. If Pt. has a central line or IVAD, may access for administration according to line specific nursing protocol. Once exam is complete flush line and de- access according to line specific nursing protocol in the CT contrast administration guidelines link.Disp: 1 EachRfl: 0 enteric contrast (will be provided with radiology test)For CT ABD/PEL W IVCON Routine order Administer, As Directed One Time Only, via Oral, Rectal, both Oral and Rectal, Enteric Tube, Stoma or Indwelling Catheter, Enteric Contrast as designated per enteric contrast guidelinesDisp: 1 EachRfl: 0 Prescriptions as of 01/01/2018 Sig: METOPROLOL SUCCINATE ER 50 MG* LINACLOTIDE 145 MCG CAPSULE Take 1 capsule by mouth once * IV CONTRAST (RADIOLOGY PROCED* CT ABD/PEL -Inject, intraveno* ENTERIC CONTRAST (RADIOLOGY P* For CT ABD/PEL W IVCON Routin* Problem List As Of Date 01/01/2018 Noted Resolved Supervision of Other Normal [Z34.80] INVALID FOR*01/27/2009 Unspecified High-Risk [O09.90] INVALID FOR*01/27/2009 Supervision of other normal [Z34.80] INVALID FOR*05/04/2010 Tobacco use [Z72.0] INVALID FOR* More... Subchorionic hemorrhage [O41.8X90, O46.8X9] INVALID FOR*02/11/2014 More... Supervision of other normal [Z34.80] INVALID FOR*09/23/2014 More... Family history of defect [Z82.79] INVALID FOR*12/24/2014 More... Cholelithiases [K80.20] INVALID FOR*12/24/2014 More... Sterilization [Z30.2] INVALID FOR*12/24/2014 More... Dysmenorrhea [N94.6] INVALID FOR*02/23/2017 Menorrhagia with regular cycle [N92.0] INVALID FOR*02/23/2017 Dyspareunia [[id number]] INVALID FOR*02/23/2017 Adenomyosis [N80.0] INVALID FOR*02/23/2017 Cervical high risk HPV (human papillomavirus) t*INVALID FOR* More... IBS (irritable bowel syndrome) [K58.9] INVALID FOR* Lower abdominal pain [R10.30] INVALID FOR* Other chest pain [R07.89] INVALID FOR* Prescriptions ordered this encounter Disp Refills Start End LINACLOTIDE 145 MCG CAPSULE 30 c* 3 01/01/2018 Route: ORAL Sig: Take 1 capsule by mouth once daily. IV CONTRAST (RADIOLOGY PROCEDURE) 1 Ea* 0 01/01/2018 Class: In Office Sig: CT ABD/PEL -Inject, intravenously, once for 1 dose.No IV access, insert saline lock prior to the beginning of sedation, infusion, injection of imaging exam. Discontinue saline lock post exam. If Pt. has a central line or IVAD, may access for administration according to line specific nursing protocol. Once exam is complete flush line and de-access according to line specific nursing protocol in the CT contrast administration guidelines link. ENTERIC CONTRAST (RADIOLOGY PROCEDUR* 1 Ea* 0 01/01/2018 Class: In Office Sig: For CT ABD/PEL W IVCON Routine order Administer, As Directed One Time Only, via Oral, Rectal, both Oral and Rectal, Enteric Tube, Stoma or Indwelling Catheter, Enteric Contrast as designated per enteric contrast guidelines Medications Discontinued During This Encounter omeprazole (PRILOSEC) 20 mg capsule 08/22/2017 01/01/2018 Class: Historical Med Sig: Disc: Other Simethicone 125 mg cap 09/21/2017 01/01/2018 Class: Historical Med Sig: Disc: Discontinued by Patient clotrimazole-betamethasone (LOTRISON* 15 g 2 10/11/2017 01/01/2018 Route: TOPICAL Sig: Apply 1 application to affected area twice daily. Patient not taking: Reported on 01/01/2018 Disc: Course of therapy completed dicyclomine (BENTYL) 20 mg tablet 08/22/2017 01/01/2018 Class: Historical Med Sig: Disc: Other DOCOSAHEXANOIC ACID/EPA (FISH OIL OR* 01/01/2018 Class: Historical Med Route: ORAL Sig: Take by mouth. Disc: Discontinued by Patient ibuprofen (MOTRIN) 600 mg tablet 0 11/30/2017 01/01/2018 Class: Historical Med Sig: TAKE 1 TABLET EVERY 6 TO 8 HOURS NEEDED Disc: Discontinued by Patient Disposition: Return in about 2 months (around 03/03/2018). Follow-up and Disposition History Recorded Encounter Status:Closed by NÉSTOR WOODWARD on 01/01/18 XR SPINE CERVICAL Observed: 12/29/2017 Status: F Source: [facility] MINIMUM 4 VIEWS 3:12 PM [facility] REPOSITORY ORIGINAL XR SPINE CERVICAL MINIMUM 4 VIEWS CLINICAL STATEMENT: neck pain COMPARISON: None FINDINGS: The cervical spine is imaged from C1 through C7. Alignment is maintained. Vertebral body heights and disc spaces are preserved. There is no prevertebral soft tissue swelling. The oblique image s demonstrate the neural foramina to be patent bilaterally. There may be mild stenosis at C3-C4 on the RIGHT. The odontoid appears intact. Asymmetry between the lateral masses of C1 and the dens on the open-mouth view may be positional. IMPRESSION: 1. Mild RIGHT neural foraminal stenosis at C3-C4. 2. Asymmetry between the dens and lateral masses of C1 may be positional. If there is a history of trauma, ligamentous injury may have this appearance. Interpreted By: Ilana Garcia MD Preliminary Report By: Ilana Garcia MD Electronically Signed By: Ilana Garcia MD Dictated Date: 12/29/2017 3:40:02 PM Prelim Date: 12/29/2017 3:40:02 PM Sign Date: 12/29/2017 3:45:42 PM PROGRESS Observed: 12/07/2017 Status: COMPLETED Source: [place] 1:07 PM [facility] REPOS[facility] HNO ID: [id number] Author: Elie Berry Service: (none) Author Type: Physician Type: Progress Notes Filed: 12/08/2017 5:40 PM Note Text: Lesly Starks is a 32 year old female who presents for problem visit for c/o pelvic pain. HPI: 32-year-old female presents signs complaining of persistent left lower quadrant pain. It significantly worse during intercourse. It bothers her intermittently throughout the week. It's achy and dull, but when she has intercourse that sharp and stabbing. She's had a previous hysterectomy. She denies any change in the pain with bowel movements or urination. She denies any dysuria or hematuria. She denies any melena or hematochezia. She denies any abnormal vaginal discharge, itching or burning. She denies any pain at the introitus are with insertion, she states the dyspareunia is deep and internal and worse on the left side. She states that her relationship is good and she wants to be intimate with her partner. She had a pelvic ultrasound which revealed a left ovarian cyst. This is been persistent. PAST MEDICAL HISTORY Diagnosis Date - Abnormal glandular Papanicolaou smear of cervix 2004 Abn. Pap smear (cervix) - Encounter for insertion or removal of intrauterine contraceptive device 05/05/2010 Mirena - Other acne - Other and unspecified anemias 2002 IN PAST - Pityriasis rosea - depression 2004 - Unspecified asthma(493.90) EXCERISE INDUCED PAST SURGICAL HISTORY Procedure Laterality Date - COLONOSCOP W/ OR W/O [facility] SPEC 06/17/15 Colonoscopy (MAC) - COLPOSCOPY (VAGINOSCOPY) Colposcopy - EGD W/O OR W/BRUSH/WASH 06/07/2013 EGD - LAPAROSCOPIC CHOLEYCYSTECTOMY 12/09/2014 umbilical hernia repair with suture - REMOVAL OF TONSILS,<12 Y/O 2004 Tonsillectomy - SALPINGECTOMY 12/09/14 bilateral salpingectomy - VAGINAL HYSTERECTOMY 04/07/2016 [facility] FAMILY HISTORY Problem Relation Age of Onset - other (herniated disc) Mother Back and neck - Heart Father - Breast Cancer Maternal Grandmother - Hypertension Maternal Grandmother - Hypertension Maternal Grandfather - Diabetes Maternal Grandfather - Heart Maternal Grandfather - Stroke Maternal Grandfather - Cancer Paternal Grandmother JAW - Breast Cancer Paternal Grandmother - Diabetes Other MG AUNT - Diabetes Other MG UNCLE - Breast Cancer Maternal Aunt Social History Marital status: Spouse name: Toñito Years of education: 12 Number of children: 5 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 Social History Main Topics Smoking status: Current Every Day Smoker Packs/day: 1.00 Years: 11.00 Types: Cigarettes Start date: 03/10/2003 Smokeless tobacco: Never Used Alcohol use: No Drug use: No Sexual activity: Yes Partners with: Male control/protection: Surgical Comment: bilateral salpingectomy 2014 Other Topics Concern No BLOOD TRANSFUSIONS No CAFFEINE Yes Comment:5-6 CANS OF POP A DAY OCCUPATIONAL EXPOSURE No HOBBY HAZARD No SLEEP CONCERN No STRESS CONCERN No WEIGHT CONCERN No DIET No BACK CARE No EXERCISE No BIKE HELMET No SEAT BELT Yes Comment:DOESNT WEAR SEAT BELT SELF EXAMS Yes Comment:DOESNT DO SBE Current Outpatient Prescriptions: metoprolol succinate ER (TOPROL XL) 50 mg 24 hr tablet dicyclomine (BENTYL) 20 mg tablet omeprazole (PRILOSEC) 20 mg capsule Simethicone 125 mg cap clotrimazole-betamethasone (LOTRISONE) cream Apply 1 application to affected area twice daily. DOCOSAHEXANOIC ACID/EPA (FISH OIL ORAL) Take by mouth. No current facility-administered medications for this visit. Allergies As of Date: 12/07/2017 (No Known Allergies) Fully Assessed 10/11/2017 REVIEW OF SYSTEMS no new c/o Allergies and current medication updated:Yes EXAM: LMP 03/17/2016 GENERAL: pleasant, female in no apparent distress ASSESSMENT AND PLAN: Persistent left ovarian cyst, chronic left lower quadrant and pelvic pain. Patient I had a lengthy discussion today after I reviewed her chart and her ultrasound findings. We reviewed etiologies for chronic pelvic pain and dyspareunia. I discussed with her that the ovarian cyst was likely benign. We reviewed that this may or may not be causing some pelvic discomfort and we reviewed how ovarian cysts contribute to pelvic pain and discomfort. We reviewed multifactorial etiology for chronic pain. I discussed with the patient the options of pelvic floor physical therapy, expectant management for her ovarian cyst, or diagnostic laparoscopy with left ovarian cystectomy. Patient states this is a significant quality of life issue for her and is been ongoing for several months. She has been managing expectantly for several months and at this point she would like to proceed with diagnostic laparoscopy. She understands this may or may not improve her pain and in the short-term it will likely significantly increase her pain. We discussed limitations after surgery and recovery. She understands that the plan would be for ovarian cystectomy and conservation of her ovary. However, we discussed the possible need for removing the ovary should there be bleeding, significant adhesions or other unanticipated pathology. Patient strongly desires to proceed with surgery. We will schedule in Jan. as next month she has a very busy schedule w/ appointments and procedures. Elie Berry MD CNOV Observed: 12/07/2017 Status: COMPLETED Source: [place] 1:00 PM [facility] REPOSITORY Office Visit ([place]) LESLY STARKS Tania ([id number]) 1985 F Date Time Provider Department 12/07/17 1:00 PM ELIE BERRY WONAA During your visit today, we recorded the following information about you: Blood pressure Weight 118/76 76.7 kg Elie Berry MD 12/08/2017 5:40 PM Signed Lesly Starks is a 32 year old female who presents for problem visit for c/o pelvic pain. HPI: 32-year-old female presents signs complaining of persistent left lower quadrant pain. It significantly worse during intercourse. It bothers her intermittently throughout the week. It's achy and dull, but when she has intercourse that sharp and stabbing. She's had a previous hysterectomy. She denies any change in the pain with bowel movements or urination. She denies any dysuria or hematuria. She denies any melena or hematochezia. She denies any abnormal vaginal discharge, itching or burning. She denies any pain at the introitus are with insertion, she states the dyspareunia is deep and internal and worse on the left side. She states that her relationship is good and she wants to be intimate with her partner. She had a pelvic ultrasound which revealed a left ovarian cyst. This is been persistent. PAST MEDICAL HISTORY Diagnosis Date - Abnormal glandular Papanicolaou smear of cervix 2004 Abn. Pap smear (cervix) - Encounter for insertion or removal of intrauterine contraceptive device 05/05/2010 Mirena - Other acne - Other and unspecified anemias 2003 IN PAST - Pityriasis rosea - depression 2004 - Unspecified asthma(493.90) EXCERISE INDUCED PAST SURGICAL HISTORY Procedure Laterality Date - COLONOSCOP W/ OR W/O [facility] SPEC 06/17/15 Colonoscopy (MAC) - COLPOSCOPY (VAGINOSCOPY) Colposcopy - EGD W/O OR W/BRUSH/WASH 06/07/2013 EGD - LAPAROSCOPIC CHOLEYCYSTECTOMY 12/09/2014 umbilical hernia repair with suture - REMOVAL OF TONSILS,<12 Y/O 2003 Tonsillectomy - SALPINGECTOMY 12/09/14 bilateral salpingectomy - VAGINAL HYSTERECTOMY 04/07/2016 [facility] FAMILY HISTORY Problem Relation Age of Onset - other (herniated disc) Mother Back and neck - Heart Father - Breast Cancer Maternal Grandmother - Hypertension Maternal Grandmother - Hypertension Maternal Grandfather - Diabetes Maternal Grandfather - Heart Maternal Grandfather - Stroke Maternal Grandfather - Cancer Paternal Grandmother JAW - Breast Cancer Paternal Grandmother - Diabetes Other MG AUNT - Diabetes Other MG UNCLE - Breast Cancer Maternal Aunt Social History Marital status: Spouse name: Toñito Years of education: 12 Number of children: 5 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 Social History Main Topics Smoking status: Current Every Day Smoker Packs/day: 1.00 Years: 11.00 Types: Cigarettes Start date: 03/10/2003 Smokeless tobacco: Never Used Alcohol use: No Drug use: No Sexual activity: Yes Partners with: Male control/protection: Surgical Comment: bilateral salpingectomy 2014 Other Topics Concern No BLOOD TRANSFUSIONS No CAFFEINE Yes Comment:5-6 CANS OF POP A DAY OCCUPATIONAL EXPOSURE No HOBBY HAZARD No SLEEP CONCERN No STRESS CONCERN No WEIGHT CONCERN No DIET No BACK CARE No EXERCISE No BIKE HELMET No SEAT BELT Yes Comment:DOESNT WEAR SEAT BELT SELF EXAMS Yes Comment:DOESNT DO SBE Current Outpatient Prescriptions: metoprolol succinate ER (TOPROL XL) 50 mg 24 hr tablet dicyclomine (BENTYL) 20 mg tablet omeprazole (PRILOSEC) 20 mg capsule Simethicone 125 mg cap clotrimazole-betamethasone (LOTRISONE) cream Apply 1 application to affected area twice daily. DOCOSAHEXANOIC ACID/EPA (FISH OIL ORAL) Take by mouth. No current facility-administered medications for this visit. Allergies As of Date: 12/07/2017 (No Known Allergies) Fully Assessed 10/11/2017 REVIEW OF SYSTEMS no new c/o Allergies and current medication updated:Yes EXAM: LMP 03/17/2016 GENERAL: pleasant, female in no apparent distress ASSESSMENT AND PLAN: Persistent left ovarian cyst, chronic left lower quadrant and pelvic pain. Patient I had a lengthy discussion today after I reviewed her chart and her ultrasound findings. We reviewed etiologies for chronic pelvic pain and dyspareunia. I discussed with her that the ovarian cyst was likely benign. We reviewed that this may or may not be causing some pelvic discomfort and we reviewed how ovarian cysts contribute to pelvic pain and discomfort. We reviewed multifactorial etiology for chronic pain. I discussed with the patient the options of pelvic floor physical therapy, expectant management for her ovarian cyst, or diagnostic laparoscopy with left ovarian cystectomy. Patient states this is a significant quality of life issue for her and is been ongoing for several months. She has been managing expectantly for several months and at this point she would like to proceed with diagnostic laparoscopy. She understands this may or may not improve her pain and in the short-term it will likely significantly increase her pain. We discussed limitations after surgery and recovery. She understands that the plan would be for ovarian cystectomy and conservation of her ovary. However, we discussed the possible need for removing the ovary should there be bleeding, significant adhesions or other unanticipated pathology. Patient strongly desires to proceed with surgery. We will schedule in Nov. as next month she has a very busy schedule w/ appointments and procedures. Elie Berry MD Referring Provider: MATILDE PATTERSON ([facility]) [[id number]] Allergies As of Date: 12/07/2017 (No Known Allergies) Date Reviewed: 12/07/2017 Reviewed by: Elizabeth Almodovar Ma - Fully Assessed Primary Visit Diagnosis:Chronic pelvic pain in female [R10.2, G89.29] Other Visit Diagnosis:Deep dyspareunia [N94.12] Prescriptions as of 12/07/2017 Sig: METOPROLOL SUCCINATE ER 50 MG* DICYCLOMINE 20 MG TABLET OMEPRAZOLE 20 MG CAPSULE,FRANKY* SIMETHICONE 125 MG CAPSULE CLOTRIMAZOLE-BETAMETHASONE 1 * Apply 1 application to affect* FISH OIL ORAL Take by mouth. IBUPROFEN 600 MG TABLET TAKE 1 TABLET EVERY 6 TO 8 HO* Problem List As Of Date 12/07/2017 Noted Resolved Supervision of Other Normal [Z34.80] INVALID FOR*01/27/2009 Unspecified High-Risk [O09.90] INVALID FOR*01/27/2009 Supervision of other normal [Z34.80] INVALID FOR*05/04/2010 Tobacco use [Z72.0] INVALID FOR* More... Subchorionic hemorrhage [O41.8X90, O46.8X9] INVALID FOR*02/11/2014 More... Supervision of other normal [Z34.80] INVALID FOR*09/23/2014 More... Family history of defect [Z82.79] INVALID FOR*12/24/2014 More... Cholelithiases [K80.20] INVALID FOR*12/24/2014 More... Sterilization [Z30.2] INVALID FOR*12/24/2014 More... Dysmenorrhea [N94.6] INVALID FOR*02/23/2017 Menorrhagia with regular cycle [N92.0] INVALID FOR*02/23/2017 Dyspareunia [WUK7402] INVALID FOR*02/23/2017 Adenomyosis [N80.0] INVALID FOR*02/23/2017 Cervical high risk HPV (human papillomavirus) t*INVALID FOR* More... Encounter Status:Closed by ELIE BERRY MD on 12/08/17 CNCO Observed: 12/01/2017 Status: COMPLETED Source: [facility] 12:00 AM [facility] REPOSITORY Letter Text MD Rubio Joy MD [address] [place] [address] December 01, 2017 Lesly Starks [facility]# [id number] [address] [place] [address] Dear Ms. Starks: We have tried on several occasions to contact you by telephone to schedule your appointment(s) without success. Please call our office at [phone] option [phone] to schedule your appointment. Thank you for your cooperation. Sincerely, Rubio Recinos MD PREGU Collected: 11/03/2017 Status: F Source: [facility] 7:11 PM [facility] REPOSITORY TYPE CODE TESTS RESULT OUT OF RANGE REFERENCE UNITS LAB PREGU(LOIN C) Test Negative Urine LAB PRUG1(LOIN C) Unknown test HCG not (u) int detected. Performed By: #### PREGU #### [address] [address] CBC Collected: 11/03/2017 Status: F Source: [facility] 7:11 PM [facility] REPOSITORY TYPE CODE TESTS RESULT OUT OF REFERENCE UNITS RANGE LAB WBC(LOINC) 4.60-10.80 10 3/mcL WBC 8.20 LAB RBCCT(LOINC 4.20-5.40 10 6/mcL ) RBC 4.71 LAB HGB(LOINC) 12.0-16.0 G/dL Hgb 14.7 LAB HCT(LOINC) 37.0-47.0 % Hct 42.0 LAB MCV(LOINC) 80.0-94.0 fL MCV 89.2 LAB MCH(LOINC) 27.0-31.2 pg High MCH 31.3 LAB MCHC(LOINC) 33.0-37.0 G/dL MCHC 35.1 LAB RDW(LOINC) 11.5-14.5 % RDW 12.7 LAB PLT(LOINC) 130-400 10 3/mcL Platelet 209 LAB MPV(LOINC) 7.4-10.4 fL MPV 9.2 Performed By: #### CBC, ADIFF, ANEU #### [address] [address] #### GFR, CMP, LIP #### [address] [address] .AUTO DIFF Collected: 11/03/2017 Status: F Source: [facility] 7:11 PM [facility] REPOSITORY TYPE CODE TESTS RESULT OUT OF REFERENCE UNITS RANGE LAB JÚNIOR(LOINC) 37.0-80.0 % Neutrophil % 45.7 LAB LYM(LOINC) 10.0-50.0 % Lymphocyte % 42.6 LAB MON(LOINC) 1.7-13.0 % Monocyte % 7.2 LAB EO(LOINC) 0.0-7.0 % Eosinophil % 4.0 LAB BAS(LOINC) 0.0-2.5 % Basophil % 0.5 LAB ABLYM(LOIN 0.77-3.85 10 3/mcL C) Lymphocyte, 3.50 Absolute LAB URIEL(LOINC 0.15-1.00 10 3/mcL ) Monocyte, 0.60 Absolute LAB AEOS(LOINC 0.00-0.40 10 3/mcL ) Eosinophil, 0.30 Absolute LAB ABAS(LOINC 0.00-0.19 10 3/mcL ) Basophil, 0.00 Absolute Performed By: #### CBC, ADIFF, ANEU #### [place] [address] #### GFR, CMP, LIP #### [place] [address] .NEUABS Collected: 11/03/2017 Status: F Source: [facility] 7:11 [facility] REPOSITORY TYPE CODE TESTS RESULT OUT OF REFERENCE UNITS RANGE LAB ANEU(LOINC) 2.85-6.16 10 3/mcL Neutrophil, 3.80 Absolute Performed By: #### CBC, ADIFF, ANEU #### [place] [address] #### GFR, CMP, LIP #### [place] [address] LIP Collected: 11/03/2017 Status: F Source: [facility] 7:11 [facility] REPOSITORY TYPE CODE TESTS RESULT OUT OF REFERENCE UNITS RANGE LAB LIP(LOINC) 73-393 U/L Lipase Level 143 Performed By: #### CBC, ADIFF, ANEU #### [place] [address] #### GFR, CMP, LIP #### [place] [address] CMP Collected: 11/03/2017 Status: F Source: [facility] 7:11 [facility] REPOSITORY TYPE CODE TESTS RESULT OUT OF REFERENCE UNITS RANGE LAB GLU(LOINC) 70-105 mg/dL Glucose Level 99 LAB NA(LOINC) 136-145 mmol/L Sodium Level 141 LAB K(LOINC) 3.5-5.1 mmol/L Potassium Level 3.8 LAB CL(LOINC) 98-107 mmol/L Chloride 107 LAB CO2(LOINC) 22-29 mmol/L CO2 25 LAB EBAL(LOINC mEq/L ) Electrolyte Balance 9.0 LAB BUN(LOINC) 7-18 mg/dL BUN 13 LAB CRE(LOINC) 0.55-1.02 mg/dL Creatinine Lvl (s) 0.88 LAB BC(LOINC) 7-27 ratio BUN/Creatinine 15 Ratio LAB CA(LOINC) 8.4-10.2 mg/dL Calcium Lvl 9.4 LAB PROT(LOINC 6.4-8.2 G/dL ) Total Protein 6.8 LAB ALB(LOINC) 3.5-5.0 G/dL Albumin Level 4.0 LAB GLB(LOINC) G/dL Globulin 2.8 LAB AG(LOINC) 1.1-2.5 ratio A/G Ratio 1.4 LAB BILT(LOINC 0.2-1.0 mg/dL ) Bili Total 0.3 LAB AP(LOINC) 40-135 U/L Alk Phos 63 LAB AST(LOINC) 10-40 U/L AST/SGOT 14 LAB ALT(LOINC) 10-35 U/L ALT/SGPT 17 Performed By: #### CBC, ADIFF, ANEU #### [address] [address] #### GFR, CMP, LIP #### [address] [address] .GFR Collected: 11/03/2017 Status: F Source: [facility] 7:11 PM [facility] REPOSITORY TYPE CODE TESTS RESULT OUT OF REFERENCE UNITS RANGE LAB GFRAA(LOINC ml/min/1.73 ) sqm GFR 90 Scottish Result Comment: GFR Population mean for , Non- Americans Ages 20-29 = 116 mL/min/1.73 sq.m. Ages 30-39 = 107 mL/min/1.73 sq.m. Ages 40-49 = 99 mL/min/1.73 sq.m. Ages 50-59 = 93 mL/min/1.73 sq.m. Ages 60-69 = 85 mL/min/1.73 sq.m. Ages 70+ = 75 mL/min/1.73 sq.m. Chronic Kidney Disease: Less than 60 mL/min/1.73 square meters End Stage Renal Disease: Less than 15 mL/min/1.73 square meters LAB GFRNO(LOINC) ml/min/1.73sqm GFR Non- 74 Result Comment: GFR Population mean for , Non- Americans Ages 20-29 = 116 mL/min/1.73 sq.m. Ages 30-39 = 107 mL/min/1.73 sq.m. Ages 40-49 = 99 mL/min/1.73 sq.m. Ages 50-59 = 93 mL/min/1.73 sq.m. Ages 60-69 = 85 mL/min/1.73 sq.m. Ages 70+ = 75 mL/min/1.73 sq.m. Chronic Kidney Disease: Less than 60 mL/min/1.73 square meters End Stage Renal Disease: Less than 15 mL/min/1.73 square meters Performed By: #### CBC, ADIFF, ANEU #### [address] [address] #### GFR, CMP, LIP #### [address] [address] UA Collected: 11/03/2017 Status: F Source: [facility] 6:41 PM [facility] REPOSITORY TYPE CODE TESTS RESULT OUT OF RANGE REFERENCE UNITS LAB SPCUA(JAN NC) UA Specimen Type Clean Catch LAB CLRUA(JAN NC) UA Color Yellow LAB APPUA(JAN Clear NC) UA Appear Clear LAB SGUA(LOIN C) UA Spec Grav 1.015 LAB GLUA(LOIN Negative mg/dL C) UA Glucose Negative LAB BILUA(JAN Negative NC) UA Bili Negative LAB KETUA(JAN Negative mg/dL NC) UA Ketones Negative LAB BLDUA(JAN Negative NC) UA Blood Unknown Trace-Intact LAB PHUA(LOIN C) UA pH 6.5 LAB PROUA(JAN Negative mg/dL NC) UA Protein Negative LAB UROUA(JAN E.U./dL NC) UA Urobilinogen 0.2 LAB NITUA(JAN Negative NC) UA Nitrite Negative LAB LEUUA(JAN Negative NC) UA Leuk Est Negative Performed By: #### UAMICAO, UA #### [address] [address] .URINALYSIS MICROSCOPIC Collected: 11/03/2017 Status: F Source: [place] ([place]) 6:41 PM [facility] REPOSITORY TYPE CODE TESTS RESULT OUT OF RANGE REFERENCE UNITS LAB WBCUA(LOIN None Seen /hpf C) UA WBC None Seen LAB RBCUA(LOIN None Seen /hpf C) Unknown UA RBC 0-5 LAB EPIUA(LOIN None Seen /hpf C) Unknown UA Squam Epithelial 0-5 Performed By: #### UAMICAO, UA #### [place] [address] [place], [place] [address] Observed: 10/11/2017 Status: F Source: [place] BACT/CAND VAG GRM [facility] 4:55 PM [facility] REPOSITORY Sp. Request/Comment: - Swab Smear Result - BACTERIAL VAGINOSIS RESULT: Stain results consistent with normal vaginal clotilde. No Yeast observed No Polymorphonuclear Leukocytes Performed By: #### BVCNSM #### [facility] [employer] [address] [address] HSV1,2/VZV AMPLIF Collected: 10/11/2017 Status: F Source: [place] 4:55 PM [facility] REPOSITORY TYPE CODE TESTS RESULT OUT OF REFERENCE UNITS RANGE [facility] Specimen Lesion Source LAB HRPSV1 HSV Type 1, Negative for HDA Herpes Simplex virus Type 1 by [facility]. LAB HRPSV2 HSV Type 2, Negative for HDA Herpes Simplex virus Type 2 by [facility]. LAB VZOSV V Zoster Virus, Negative for HDA Varicella Zoster virus by [facility]. Performed By: #### HSVVZV #### [facility] [employer] [address] [address] PROGRESS Observed: 10/11/2017 Status: COMPLETED Source: [place] 4:35 PM [facility] REPOSITORY HNO ID: [id number] Author: Matilde (Tammy Patterson Service: (none) Author Type: Nurse Practitioner Type: Progress Notes Filed: 10/11/2017 5:06 PM Note Text: Lesly Starks is a 32 year old female who presents for vaginal itching x 3 weeks. Itching extends to around rectum. Is also having pain and aching to both sides ' over ovaries and bloating x [address] Berry said ovaries look OK at time of hysterectomy. Vaginal discharge: scant amount, thin and clear. Itching: YES Dyspareunia: not sexually active Fever/chills: No Abdominal pain: Yes, thinks is due to IBS Bladder: Negative for dysuria. Positive for Frequency. Does not feel like a UTI as she always has burning with an UTI. Bowel: No blood in stool, pain with BM, tarry stool, persistent diarrhea or constipation Any new sexual partners or concern for STD exposure: No Any history of STDs: None Does your partner have any new complaints: NA Are you currently taking any medications to treat vaginitis: Yes, Vagisil, Prep H wipes, generic hemorrhoid cream Do you use feminine sprays, douches or deodorants: No Menstrual cycle: hysterectomy 2017 for adenomyosis, dysmenorrhea. Ovaries remain. Past medical, surgical, social history, medications and allergies reviewed and updated. OBJECTIVE: BP 112/74 Ht 5' 9 (1.75m) Wt 171 lb (77.6kg) LMP 03/17/2016 BMI 25.24 kg/(m2). GENERAL: Well developed, well nourished in no apparent distress ABDOMEN: soft, non-tender and no masses PELVIC: external genitalia normal, normal Bartholin's glands, urethra, Ann[place]'s glands, no cervical lesions, good vaginal support, normal appearing perineal body and perianal region, vulvar lesion numerous linear tiny open areas around rectum and perineum, white thick vaginal discharge BIMANUAL: no adnexal masses, uterus surgically absent. Mild tenderness over adnexa. Office Visit on 10/11/17 -HSV 1,2/VZV AMP MOLECULAR DETECT -BACT/DAMASO VAG GRAM STAIN -metoprolol succinate ER (TOPROL XL) 50 mg 24 hr tablet -dicyclomine (BENTYL) 20 mg tablet -omeprazole (PRILOSEC) 20 mg capsule -Simethicone 125 mg cap -clotrimazole-betamethasone (LOTRISONE) cream ASSESSMENT/PLAN: 1. Vagina itching - ICD9: 698.1, ICD10: N89.8 (primary diagnosis) - BACT/DAMASO VAG GRAM STAIN - CLOTRIMAZOLE-BETAMETHASONE 1 %-0.05 % TOPICAL CREAM 2. Labial lesion - ICD9: 624.8, ICD10: N90.89 No history of herpes, no pain only itching. Scratches vs herpes lesions. No sexual activity x 6 months. - HSV 1,2/VZV AMP MOLECULAR DETECT Will notify of results. Will discuss bloating and adnexal tenderness with Dr Berry. Follow-up as needed. Matilde Patterson APRN.ROSSY CNOV Observed: 10/11/2017 Status: COMPLETED Source: [place] 4:30 PM [facility] REPOSITORY Office Visit (WOOB) LESLY STARKS ([id number]) 1985 F Date Time Provider Department 10/11/17 4:30 PM MATILDE PATTERSON (HOT [employer]ILL [employer]LLER) WOOB During your visit today, we recorded the following information about you: Blood pressure Weight Height 112/74 77.6 kg 1.753 m Matilde Patterson APRN.HOT MILL ROLLER 10/11/2017 5:06 PM Signed Lesly Starks is a 32 year old female who presents for vaginal itching x 3 weeks. Itching extends to around rectum. Is also having pain and aching to both sides ' over ovaries and bloating x [address] Berry said ovaries look OK at time of hysterectomy. Vaginal discharge: scant amount, thin and clear. Itching: YES Dyspareunia: not sexually active Fever/chills: No Abdominal pain: Yes, thinks is due to IBS Bladder: Negative for dysuria. Positive for Frequency. Does not feel like a UTI as she always has burning with an UTI. Bowel: No blood in stool, pain with BM, tarry stool, persistent diarrhea or constipation Any new sexual partners or concern for STD exposure: No Any history of STDs: None Does your partner have any new complaints: NA Are you currently taking any medications to treat vaginitis: Yes, Vagisil, Prep H wipes, generic hemorrhoid cream Do you use feminine sprays, douches or deodorants: No Menstrual cycle: hysterectomy 2017 for adenomyosis, dysmenorrhea. Ovaries remain. Past medical, surgical, social history, medications and allergies reviewed and updated. OBJECTIVE: BP 112/74 Ht 5' 9 (1.75m) Wt 171 lb (77.6kg) LMP 03/17/2016 BMI 25.24 kg/(m2). GENERAL: Well developed, well nourished in no apparent distress ABDOMEN: soft, non-tender and no masses PELVIC: external genitalia normal, normal Bartholin's glands, urethra, Ann[place]'s glands, no cervical lesions, good vaginal support, normal appearing perineal body and perianal region, vulvar lesion numerous linear tiny open areas around rectum and perineum, white thick vaginal discharge BIMANUAL: no adnexal masses, uterus surgically absent. Mild tenderness over adnexa. Office Visit on 10/11/17 -HSV 1,2/VZV AMP MOLECULAR DETECT -BACT/DAMASO VAG GRAM STAIN -metoprolol succinate ER (TOPROL XL) 50 mg 24 hr tablet -dicyclomine (BENTYL) 20 mg tablet -omeprazole (PRILOSEC) 20 mg capsule -Simethicone 125 mg cap -clotrimazole-betamethasone (LOTRISONE) cream ASSESSMENT/PLAN: 1. Vagina itching - ICD9: 698.1, ICD10: N89.8 (primary diagnosis) - BACT/DAMASO VAG GRAM STAIN - CLOTRIMAZOLE-BETAMETHASONE 1 %-0.05 % TOPICAL CREAM 2. Labial lesion - ICD9: 624.8, ICD10: N90.89 No history of herpes, no pain only itching. Scratches vs herpes lesions. No sexual activity x 6 months. - HSV 1,2/VZV AMP MOLECULAR DETECT Will notify of results. Will discuss bloating and adnexal tenderness with Dr Berry. Follow-up as needed. Matilde Patterson APRN.ROSSY Referring Provider: SELF [200] Allergies As of Date: 10/11/2017 (No Known Allergies) Date Reviewed: 10/11/2017 Reviewed by: Matilde (Horse Stud Worker) Yesenia - Fully Assessed Reason for Visit: Vaginal Problem [117] Primary Visit Diagnosis:Vagina itching [N89.8] Other Visit Diagnosis:Labial lesion [N90.89] Order(s):HSV 1,2/VZV AMP MOLECULAR DETECT [SQHSVVZV] Order #: [id number] BACT/DAMASO VAG GRAM STAIN [SQBVCNSM] Order #: [id number] FUTURE clotrimazole-betamethasone (LOTRISONE) creamApply 1 application to affected area twice daily.Disp: 15 gRfl: 2 Prescriptions as of 10/11/2017 Sig: METOPROLOL SUCCINATE ER 50 MG* DICYCLOMINE 20 MG TABLET OMEPRAZOLE 20 MG CAPSULE,FRANKY* SIMETHICONE 125 MG CAPSULE CLOTRIMAZOLE-BETAMETHASONE 1 * Apply 1 application to affect* FISH OIL ORAL Take by mouth. Problem List As Of Date 10/11/2017 Noted Resolved Supervision of Other Normal [Z34.80] INVALID FOR*01/27/2009 Unspecified High-Risk [O09.90] INVALID FOR*01/27/2009 Supervision of other normal [Z34.80] INVALID FOR*05/04/2010 Tobacco use [Z72.0] INVALID FOR* More... Subchorionic hemorrhage [O41.8X90, O46.8X9] INVALID FOR*02/11/2014 More... Supervision of other normal [Z34.80] INVALID FOR*09/23/2014 More... Family history of defect [Z82.79] INVALID FOR*12/24/2014 More... Cholelithiases [K80.20] INVALID FOR*12/24/2014 More... Sterilization [Z30.2] INVALID FOR*12/24/2014 More... Dysmenorrhea [N94.6] INVALID FOR*02/23/2017 Menorrhagia with regular cycle [N92.0] INVALID FOR*02/23/2017 Dyspareunia [GSQ1393] INVALID FOR*02/23/2017 Adenomyosis [N80.0] INVALID FOR*02/23/2017 Cervical high risk HPV (human papillomavirus) t*INVALID FOR* More... Prescriptions ordered this encounter Disp Refills Start End CLOTRIMAZOLE-BETAMETHASONE 1 %-0.05 * 15 g 2 10/11/2017 Route: TOPICAL Sig: Apply 1 application to affected area twice daily. Medications Discontinued During This Encounter fluconazole (DIFLUCAN) 150 mg tablet 2 ta* 0 12/09/2016 10/11/2017 Sig: Take one tablet today and one in 3 days Disc: Reason for discontinue is not on file. Encounter Status:Closed by MATILDE PATTERSON on 10/11/17 ALLERGIES ALLERGIES DATE TYPE / CODE NAME / CODE REACTION SEVERITY SOURCE 01/11/2018 Drug No Known Unknown [facility] Allergy/416 Allergies/[id number] Hospital 871151(SNOM 0388(RXNORM) Repository ED CT) Drug NO KNOWN [facility] Class/43136 ALLERGIES Main [place] 1003(SNOMED Repository CT) ENCOUNTERS ENCOUNTERS ADMIT/DISCHARGE ACCOUNT NUMBER ADMITTING ENCOUNTER LOCATION SOURCE CLASS 02/23/[id number] [facility] ding:PT Repository 02/09/2018/02/10/20 [id number] Ambulatory BBuilding: [place] [address] [place] [address] Repository 01/29/2018/01/31/20 [id number] Ambulatory [address] Repository 01/23/2018/01/27/20 [id number] Ambulatory [address] Repository 01/23/2018/01/24/20 [id number] Ambulatory [address] Repository 01/18/2018/01/19/20 [id number] Ambulatory [address] ding:SDCRoom Repository : AC10 01/08/2018/01/10/20 [id number] Ambulatory [address] Repository 01/01/2018/01/03/20 [id number] Ambulatory [address] Repository 12/29/2017/12/30/19 [id number] Ambulatory [address] ding:[facility] [place] Repository 12/07/2017/12/12/19 [id number] Ambulatory [address] [place] Repository 11/30/2017/12/02/19 [id number] Ambulatory [address] [place] Repository 11/03/2017/11/04/19 [id number] Emergency BBuilding:DIANE Nelson [address] [place] [address] Repository 10/17/2017/10/21/19 [id number] Ambulatory [address] Repository 10/11/2017/10/13/19 [id number] Ambulatory [address] Repository PAYERS PAYERS ENCOUNTER GUARANTOR PAYER SUBSCRIBER SOURCE 02/23/2018 LESLY RAND N Maximiliano [id number] Insurance:CARESOURCEP MILLERDOB: Community [place] olicy Number: [id number] [id number] Repository [address]Fik: ([phone]) Date:2017-01-11P O [phone] () [address]ATTN: [place] [address]CB: 02/23/2018 Secondary NOT GIVENUNK [place] Insurance:SELF PAY [facility] Number: Effective Repository Date:2018-02-05 02/09/2018 LESLY N Primary LESLY [place] [facility] MILLERDOB: Insurance:CARESOURCE MILLERDOB: [facility] MEDICAIDPolicy [id number] Repository [place] Number: [place], [place] [id number] [place], [place] [address]Kgb: (330) Date:2018-02-07 [address]Vih: (HP) [phone] [phone] Name:[address] ()Tel: [phone], [place] [phone] () [phone]: 01/18/2018 LESLY [place] Primary LESLY [place] Maximiliano [id number] Insurance:CARESOURCEP [facility]ERDOB[facility] Number: [id number], [place] [id number] Repository [address]Ngl: ([phone]) Date:2017-12-26 O [phone] () [address]ATTN: [place] [address]IU: 01/18/2018 Secondary NOT GIVENUNK [place] Insurance:SELF PAY [facility] Number: Effective Repository Date:2017-12-26 12/29/2017 LESLY N Primary LESLY N [facility] MILLERDOB: Insurance:CARESOURCE MILLERDOB: [facility] MEDICAIDPolicy [id number] Repository [place] Number: [place] [id number] [place] [address]Tal: ([phone]) Date:2017-12-2998894Ieg: () [id number] [phone] Name:[address] (HP)Tel: [phone], [place] [phone] (WP) [address]: 11/03/2017 [facility] [id number] MEDICAIDPolicy [id number] Repository [place] Number: [place]TO [place] [id number] [place], [place] [address]Caf: ([phone]) Date:[id number]: () [id number] [phone] Name:[address] (HP)Tel: [phone], [place] [phone] (WP) [phone]:
== END 2018-02-23 19:00 | disposition home or self-care (01) ==
LOC: PT 16:00
PROVIDERS: Family Provider Family Medicine; PCP Family Medicine
DX: M54.2 Cervicalgia (principal)
CPT/HCPCS: 97035; 97162; 97530

== ENCOUNTER 2018-09-24 10:21 | Emergency (ER) | payer MEDICAID, SELFPAY ==
[2018-09-24 10:22] VITALS: BP 166/79; PULSE 92; RESP 17; TEMP 36.7; O2SAT 100; BMI 25.0
--- NOTE | 2018-09-24 10:39 | MRI_ITS ---
STUDY: MRI BRAIN WITH AND WITHOUT CONTRAST REASON FOR EXAM: Female, 33 years old. Vision changes, paresthesia TECHNIQUE: Standardized multiplanar fat and water weighted pulse sequences were obtained. 15 IV Dotarem was administered for the contrast portion of the examination. COMPARISON: None. FINDINGS: Normal size of the ventricles and extra-axial spaces for the patient's age. Normal white matter tracts of the supratentorial brain. Normal bilateral basal ganglia. Normal thalami. There is no extra-axial fluid accumulation. Normal flow voids within the major intracranial circulation suggesting patency by spin echo criteria. Normal venous enhancement. There is no enhancing intra-axial or extra-axial abnormality. Normal sella turcica, pituitary gland, infundibular stalk, optic chiasm and hypothalamus. Normal tectal plate and pineal gland. Normal midbrain, arun and medulla. Normal cerebellum. Normal basal cisterns. Normal bilateral temporal bones. Normal bilateral internal auditory canals. No demonstrated orbital abnormality, within the constraints of a routine brain study. Normal visualized paranasal sinuses. Normal calvarium and skull base. Normal visualized soft tissue structures. Normal visualized upper cervical spine. MRI/Brain W/WO Contrast IMPRESSION: Normal unenhanced and enhanced MRI of the brain. Electronically Signed: Mark Lozada, at 15:46 EDT Tel , Service support ,
--- NOTE | 2018-09-24 10:40 | ED.DCSUM_ITS ---
History of Present Illness Chief Complaint: Headache Informant: Patient Onset: Month(s) - 6 Context: Gradual Onset Timing: Intermittent Current Severity: Mild Maximum Severity: Mild Narrative: She has had 6-month history of intermittent blurred vision, some numbness in her tongue, paresthesias in her fingers and different neurological symptoms. She was told by neurology, PCP to come to the emergency department for an MRI to rule out MS. Currently she has minimal symptoms but they are intermittent. She denies any fever chills any trauma. She has no headache. She has no prior kidney issues. She does not feel confused. Past Medical History - Allergies and Home Meds Allergies/Adverse Reactions: Allergies No Known Allergies Allergy (Verified 09/24/18 10:22) Past Medical History: - - GERD Surgical History: hysterectomy Lives: Spouse/ Significant Other Smoking Status: Current every day smoker Review of Systems General: Denies: Chills, Fever, Sweats Eyes: Reports: Diplopia, - - Intermittent vision changes and is in HPI. Denies: Visual changes - bilaterally ENT: Denies: Rhinorrhea, Sore throat Cardiovascular: Denies: Chest pain, Palpitations Respiratory: Denies: Dyspnea, Cough, Dyspnea on exertion Gastrointestinal: Denies: Abdominal pain, Nausea, Vomiting, Diarrhea, Melena, Hematochezia Genitourinary: Denies: Dysuria, Hematuria, Frequency Musculoskeletal: Denies: Back pain, Extremity Pain Skin: Denies: Rash, Wounds Neurological: Reports: Weakness, Numbness, - - Intermittent paresthesias and n umbness as in HPI. Denies: Headache Endocrine: Denies: Polyuria Allergy: Denies: Uticaria Physical Exam Vital Signs/Narrative: Vital Signs Temp Pulse Resp BP Pulse Ox 09/24/18 10:22 98.1 F 92 17 166/79 H 100 General: Well nourished, Well developed Head: Normocephalic Eyes: Perrl, EOMI ENT: Moist mucous membranes Cardiovascular: Regular rate Respiratory: No distress Abdomen: Soft Back: Nontender, Normal Inspection Extremities: Nontender, No edema Skin: Normal color Neurological: Alert, Oriented x3, Cranial nerves II-XII grossly intact, Normal Strength, Normal Sensation, Normal Gait. Negative for: Confused, Disoriented, Weakness Psychological: Normal affect, Normal Mood Diagnostic/Tx/Re-eval - Medical Decision Making Because of the patient's symptoms and MRI without contrast and with contrast of the brain was ordered. Patient has an unremarkable physical exam. MRI results will be turned over to the oncoming ED physician. If normal she will be discharged. ED Disposition - Plan for ED Patient: Disposition: Home or Assisted Living Diagnosis: Headache Instructions: HEADACHE, Unspecified Referrals: Care Physician,No Primary [Primary Care Provider] - 2 Days
--- NOTE | 2018-09-24 10:53 | ED.RN ---
PER MAGDA FROM [facility], IT WILL BE 1330 TO 1400 BEFORE THEY HAVE AN OPENING.
[2018-09-24 11:15] LABS: Anion Gap 7 (5-15); BUN 9 mg/dL (7-18); BUN/Creat Ratio 10.6 RATIO (10-20); Calcium,Total 8.9 mg/dL (8.5-10.1); Chloride 110 mmol/L (98-107); Creatinine, Serum 0.85 mg/dL (0.55-1.02); EST Glomerular Filtration Rate 82 mL/min (>60); Est Glom Filt Rate - Afr Amer 99 mL/min (>60); Estimated Creatinine Clearance 94.96 ml/min; Glucose 93 mg/dL (74-106); Potassium 3.5 mmol/L (3.5-5.1); Sodium Level 141 mmol/L (136-145)
[2018-09-24 12:36] VITALS: BP 128/88; PULSE 71; RESP 16; O2SAT 98
--- NOTE | 2018-09-24 12:36 | ED.RN ---
mri questionare complete and faxed to [facility]. hosea pringle rn [id number]
--- NOTE | 2018-09-24 15:11 | ED.DEP ---
ED Disposition - Plan for ED Patient: Disposition: Home or Assisted Living Diagnosis: Headache Instructions: HEADACHE, Unspecified Referrals: Care Physician,No Primary [Primary Care Provider] - 2 Days
[2018-09-24 16:17] VITALS: BP 133/77; PULSE 71; RESP 16; O2SAT 98
[2018-09-24 16:18] VITALS: BP 133/77; PULSE 71; RESP 16; O2SAT 98
== END 2018-09-24 16:18 | disposition home or self-care (01) ==
PROVIDERS: Emergency Provider Emergency Medicine
DX: R51 Headache (principal); H53.8 Other visual disturbances; R20.2 Paresthesia of skin; R20.0 Anesthesia of skin; K21.9 Gastro-esophageal reflux disease without esophagitis; F17.200 Nicotine dependence, unspecified, uncomplicated
CPT/HCPCS: 70553; 80048; 99282; A9575

== ENCOUNTER 2018-12-10 12:32 | Emergency (ER) | payer MEDICAID, SELFPAY ==
[2018-12-10 12:33] VITALS: BP 149/76; PULSE 90; RESP 16; TEMP 36.7; O2SAT 98; BMI 26.0
--- NOTE | 2018-12-10 13:00 | RAD_ITS ---
STUDY: X-RAY CHEST REASON FOR EXAM: Female, 33 years old. Right-sided chest pain and chest tightness. TECHNIQUE: Single AP portable view of the chest. COMPARISON: Comparison is made with prior study dated February 13, 2014. FINDINGS: EKG electrodes are seen. Hyperinflation. The lungs are clear. There is no demonstrated pleural abnormality. Normal size heart. Normal mediastinum and ana paula. Normal visualized pulmonary arteries. Normal visualized aortic arch and descending thoracic aorta. Normal visualized thoracic spine. Normal visualized ribs, clavicles, and shoulders. There is no demonstrated abnormality of the visualized soft tissue structures of the upper abdomen. RAD/Chest 1 View (Portable) IMPRESSION: Hyperinflation. Electronically Signed: Efraín Cesar, at 13:41 EDT , Service support ,
--- NOTE | 2018-12-10 13:00 | EKG12_ITS ---
Test Reason : CP Blood Pressure : / mmHG Vent. Rate : 078 BPM Atrial Rate : 078 BPM P-R Int : 134 ms QRS Dur : 106 ms QT Int : 404 ms P-R-T Axes : 032 087 053 degrees QTc Int : 460 ms Normal sinus rhythm with sinus arrhythmia [id number] Confirmed by HERMINIA FERREIRA, CHRISTOPHER ([id number]), food expeditor RASHEL CH ([id number]) on 12/12/2018 12:23:23 PM Referred By: BELEN Confirmed By:CHRISTOPHER HOPE MD
--- NOTE | 2018-12-10 13:18 | ED.DCSUM_ITS ---
History of Present Illness Chief Complaint: Dizziness Narrative: 33-year-old female presents with concern for right-sided tingling as well as ataxia. States that she has been seen multiple times by neurologist and worked up with MRI. Patient currently seeing neurologist who is trying to get MRI of spine and blood work. Patient denies headache, vision change, head injury, chest pain, shortness of breath, nausea, vomiting, urinary symptoms. Family history of lung cancer secondary to smoking. Past Medical History - Allergies and Home Meds Allergies/Adverse Reactions: Allergies No Known Allergies Allergy (Verified 12/10/18 12:34) Primary Care Physician: Ary Corrales DO [Primary Care Provider] - Prior records reviewed: Yes Past Medical History: None Surgical History: hysterectomy Smoking Status: Current every day smoker Review of Systems General: Denies: Chills, Fever, Sweats Eyes: Denies: Visual changes - bilaterally, Diplopia ENT: Denies: Rhinorrhea, Sore throat Cardiovascular: Denies: Chest pain, Palpitations Respiratory: Denies: Dyspnea, Cough, Dyspnea on exertion Gastrointestinal: Denies: Abdominal pain, Nausea, Vomiting, Diarrhea, Melena, Hematochezia Genitourinary: Denies: Dysuria, Hematuria, Frequency Musculoskeletal: Denies: Back pain, Extremity Pain Skin: Denies: Rash, Wounds Neurological: Reports: Parasthesia, - - ataxia. Denies: Headache, Weakness, Numbness Physical Exam Vital Signs/Narrative: Vital Signs Temp Pulse Resp BP Pulse Ox 12/10/18 12:33 98.1 F 90 16 149/76 H 98 Inital Vital Signs reviewed: Yes General: Well nourished, Well developed, No Acute Distress Head: Normocephalic, Atraumatic Eyes: Perrl, EOMI ENT: Moist mucous membranes, No rhinorrhea Neck: Supple, Nontender Cardiovascular: Regular rate, Regular rhythm, No murmurs Respiratory: No distress, CTA bilaterally, Chest nontender Abdomen: Soft, Nontender, Nondistended, Normal bowel sounds Back: Nontender, Normal Inspection Extremities: Nontender, No edema Skin: Normal color, No rash Neurological: Alert, Oriented x3, Cranial nerves II-XII grossly intact, Normal Strength, Normal Sensation, Normal DTR Psychological: Normal affect, Normal Mood Diagnostic/Tx/Re-eval Chest X-Ray - ED: 1 View, Read by ED Physician, Read by Radiologist, No Acute Disease - Rhythm Strip Rhythm Strip: Sinus Rhythm Rate: 78 - EKG Initial EKG Interpretation: - - Normal sinus rhythm at 78 bpm. KS interval and QTC within normal limits. No evidence of ST elevation or depression. - Medical Decision Making Patient appears well nontoxic. Vital signs within normal limits. No focal neurologic deficit. No sign of meningismus. Lab work within normal limits in cluding urinalysis. Chest x-ray normal. EKG shows no ischemia. After extensive discussion with patient she will follow-up with her neurologist. Asked to return for new or worsening symptoms. Patient agreeable to this plan and discharged home in stable condition. ED Disposition - Plan for ED Patient: Disposition: Home or Assisted Living Diagnosis: Dizziness Instructions: DIZZINESS, Unk Cause Referrals: Ary Corrales DO [Primary Care Provider] -
[2018-12-10 13:24] LABS: Absolute Lymphocyte Count 2.69 X10^3/uL (0.83-4.51); Basophil# 0.03 X10^3/uL; Basophil% 0.4 % (0-1); Eosinophil# 0.16 X10^3/uL; Eosinophils% 2.2 % (0-5); Hematocrit 41.4 % (37-47); Lymphocyte # 2.69 X10^3/ul (4.0); Lymphocyte % 36.8 % (19-41); Mean Corp Hgb Conc 33.8 g/dL (32-36); Mean Corpuscular Hgb 30.6 pg (27.0-32.0); Mean Corpuscular Volume 90.4 fL (81-99); Mean Platelet Vol. 10.4 fl (6.2-12.0); Monocyte# 0.44 X10^3/uL; NRBC Flagged by Analyzer 0 % (0-5); Neutrophil # 3.96 X10^3/uL (2.7-7.7); Neutrophil % 54.3 % (47-70); Platelet Count 219 K/mm3 (150-450); RBC Distribution Width CV 11.6 % (11.6-14.6); RBC Distribution Width SD 38.3 fl (35.1-43.9); Red Blood Count 4.58 M/mm3 (4.2-5.4); White Blood Count 7.3 K/mm3 (4.4-11.0)
[2018-12-10 13:34] LABS: Anion Gap 6 (5-15); BUN 9 mg/dL (7-18); BUN/Creat Ratio 10.3 RATIO (10-20); Calcium,Total 9.5 mg/dL (8.5-10.1); Chloride 107 mmol/L (98-107); Creatinine, Serum 0.88 mg/dL (0.55-1.02); EST Glomerular Filtration Rate 79 mL/min (>60); Est Glom Filt Rate - Afr Amer 95 mL/min (>60); Estimated Creatinine Clearance 91.73 ml/min; Glucose 86 mg/dL (74-106); Potassium 3.6 mmol/L (3.5-5.1); Sodium Level 139 mmol/L (136-145)
[2018-12-10 13:39] LABS: Bacteria 0 SEEN /hpf (None Seen); Mucous, Urine 0 SEEN /hpf (<or=2+); Red Blood Cells-Urine 0 SEEN /hpf (0-5); White Blood Cells 0 SEEN /hpf (0-5)
[2018-12-10 13:53] LABS: Color, Urine Yellow (Yellow); Glucose, Dipstick Normal (Normal); Ketone-Dipstick Negative (Negative); Leukocyte Esterase-Dipstick Negative /ul (Negative); Nitrite-Dipstick Negative (Negative); Occult Blood-Urine Negative /ul (Negative); Protein-Dipstick Negative (Negative); Urine Bilirubin Dipstick Negative (Negative); Urine Clarity Sl. Cloudy (Clear); Urine Urobilinogen Normal (Normal); Urine pH 6.5 (5.0 - 8.0)
[2018-12-10 13:55] LABS: Internal QC Validated? YES +Cl - CLEAR BKGD; Pregnancy, Urine Negative Negative
[2018-12-10 14:06] LABS: Squamous Epithelial Cells - UA 0-5 SEEN /hpf (5-10)
[2018-12-10 14:24] VITALS: BP 123/81; PULSE 75; RESP 18; O2SAT 98
== END 2018-12-10 14:24 | disposition home or self-care (01) ==
PROVIDERS: Emergency Provider Emergency Medicine; Family Provider Family Medicine; PCP Family Medicine
DX: R42 Dizziness and giddiness (principal); F17.200 Nicotine dependence, unspecified, uncomplicated
CPT/HCPCS: 71045; 80048; 81001; 81025; 85025; 93005; 99283; A4216

== ENCOUNTER → 2018-12-28 10:03 | Outpatient (CLI) | payer MEDICAID, SELFPAY ==
[2018-12-10 12:33] VITALS: BMI 26.0
--- NOTE | 2018-12-28 10:25 | RAD_ITS ---
HISTORY: chronic pain, no injury COMPARISON: None FINDINGS: # of images incl. paperwork: 5 XR Spine Cervical 4 or 5 Views: Flexion and extension laterals. . All 7 cervical vertebral bodies are identified. No acute cervical spine fracture or subluxation. Normal cervical spine alignment. Odontoid is intact. RAD/Cerv Spine 4 or 5 Views IMPRESSION: No acute cervical spine fracture or subluxation. at 0157 Reported and signed by: Pillo Bruner MD Electronically Signed: Pillo Bruner MD at 1:56 EDT Tel , Service support ,
--- NOTE | 2018-12-28 10:25 | RAD_ITS ---
HISTORY: chronic pain, no injury COMPARISON: None FINDINGS: # of images incl. paperwork: 3 XR Spine Thoracic 3 Views: Thoracic vertebral bodies are normal in height. No acute thoracic spine fracture or subluxation. There is some degenerative disc disease at what I perceived to be the T12-L1 level. RAD/Thoracic Spine 3 Views IMPRESSION: No acute thoracic spine fracture or subluxation. at 0142 Reported and signed by: Pillo Bruner MD Electronically Signed: Pillo Bruner MD at 1:41 EDT Tel , Service support ,
--- NOTE | 2018-12-28 10:35 | MRI_ITS ---
STUDY: MRI THORACIC SPINE WITH AND WITHOUT CONTRAST REASON FOR EXAM: Female, 33 years old. The patient presents with a history of pain of the right arm and leg. Evaluate for myelopathy. TECHNIQUE: IV Dotarem 15 was administered for the contrast portion of the examination. COMPARISON: None. FINDINGS: Normal kyphosis of the thoracic spine. There is no substantial scoliosis. Normal cervical cord, without atrophy, syrinx formation, cord edema or signal alteration. There is no central canal stenosis. The tip of the conus medullaris is not demonstrated on this examination appears to terminate inferior to the L1 vertebral body level. There is no thoracic cord enhancement or abnormal vessels to suggest a vascular malformation. T1-2, T2-3, T3-4, T4-5, T5-6, T6-7, T7-8, T8-9, T9-10, T10-11, T11-12: Normal endplates. Normal disc hydration, heights and morphology of the corresponding intervertebral discs. Normal central canal and intervertebral neural foramina at the corresponding levels.There is no disc herniation. The soft tissue structures are unremarkable. There is no enhancing abnormality. MRI/Spine Thoracic W/WO Contrast IMPRESSION: Normal unenhanced and enhanced MRI examination of the thoracic spine. Electronically Signed: Ulises Zhong DO at 13:31 EDT Tel , Service support ,
--- NOTE | 2018-12-28 10:35 | MRI_ITS ---
STUDY: MRI CERVICAL SPINE WITHOUT CONTRAST REASON FOR EXAM: Female, 33 years old. The patient presents with a history of pain of the right arm and right leg. Evaluate for myelopathy, radiculopathy. TECHNIQUE: Standardized fat and water weighted pulse sequences were obtained in the sagittal and axial planes. COMPARISON: No relevant priors. FINDINGS: Craniovertebral Junction Foramen Magnum: Normal. Brainstem Cervical Cord Junction: Normal. Atlanto-Occipital Articulation: Normal. Atlantoaxial Articulation (Anterior): Normal. Odontoid Process: Normal. Vertebrae, Alignment and Perivertebral Spaces: Vertebrae: Normal. Curvature: Normal. Alignment: Normal. Prevertebral Space: Normal. Prevertebral Muscles: Normal. Disc Space Levels N.B., Normal level statement indicates: Normal endplates; disc height, signal and morphology; facet joints; central canal, lateral recesses, and intervertebral neuroformina. C2-3: Normal. C3-4: Normal. C4-5: Normal. C5-6: There is minimal disc desiccation and anterior endplate spondylosis with minimal annular bulging (sagittal STIR series 3, image 8). Normal central canal and intervertebral neural foramina. C6-7: Normal. C7-T1: Normal. Cervical / Thoracic (Visualized) Cord Cervical Cord: Normal morphology and signal characteristics. There is no myelomalacia, cord edema or syrinx formation. Soft Tissue Neck Masses: None. Lymphadenopathy: None. Thyroid Gland: Normal. MRI/Spine Cervical W/WO Contrast IMPRESSION: 1. C5-6 minimal disc desiccation and annular bulging but with a normal central canal widely patent intervertebral neural foramina without neural impingement. 2. Normal cervical cord without demonstrated myelomalacia, cord edema or syrinx formation. Electronically Signed: Ulises Zhong DO at 13:25 EDT Tel , Service support ,
== END ==
PROVIDERS: Family Provider Family Medicine; PCP Family Medicine
DX: M54.12 Radiculopathy, cervical region (principal); M54.14 Radiculopathy, thoracic region
CPT/HCPCS: 72050; 72072; 72156; 72157; A9575

== ENCOUNTER 2019-07-01 23:16 | Emergency (ER) | payer MEDICAID, SELFPAY ==
[2019-07-01 23:17] VITALS: BP 158/99; PULSE 89; RESP 16; TEMP 36.9; O2SAT 98; BMI 26.3
--- NOTE | 2019-07-01 23:26 | EKG12_ITS ---
Test Reason : CP Blood Pressure : / mmHG Vent. Rate : 093 BPM Atrial Rate : 093 BPM P-R Int : 116 ms QRS Dur : 106 ms QT Int : 386 ms P-R-T Axes : 076 089 062 degrees QTc Int : 479 ms Normal sinus rhythm Incomplete right bundle branch block Confirmed by HERMINIA FERREIRA, CHRISTOPHER ([id number]), online editor CARLY STARKS ([id number]) on 07/03/2019 9:40:57 AM Referred By: BB Confirmed By:CHRISTOPHER HOPE MD
--- NOTE | 2019-07-01 23:46 | ED.DCSUM_ITS ---
History of Present Illness Chief Complaint: Chest Other Informant: Patient Onset: Month(s) - 1 Activity at onset: Unknown Timing: Continuous Quality: Tightness - w/ sharp pleuritic pains Location: Substernal - w/ sharp pain in chest and R shoulder/upper arm when deeply inspires Current Severity: Mild Maximum Severity: Moderate Worsened By: Breathing, - - lying flat; tends to wake her up at night Relieved By: - - sitting up Associated Symptoms: Dyspnea - when lies down; more because of lump in back of tongue/throat than anything in chest. Negative for: Nausea, Vomiting, Diaphoresis, Cough, Fever, Lightheadedness, Palpitations Narrative: Patient states she has been having the symptoms for 1 month. She states she started noticing the lump underneath her tongue, nodules in the back of her tongue, and pleuritic chest discomfort that radiates to her right shoulder all starting simultaneously 1 month ago and fairly consistent for that amount of time. She comes to the ER tonight for the same symptoms because it was a lot worse with lying down tonight, it has seemed to be worse with lying down. She feels better when she sits up. She has done virtual visit with her doctor over video chat and has been prescribed amoxicillin, thrush treatment, and been doing saltwater rinses with nothing helping any of this. She does not seem to have any pain in her mouth, sublingual area, throat, or neck. There is no painful swallowing. She has a minor nonproductive cough off and on without fevers or dyspnea associated with it, occasionally when she coughs she gets the taste of blood in her mouth but has never produced any blood or obvious gross hemoptysis. No epistaxis. She has been confused by the symptom. She is a smoker and was concerned about cancer, and has an appointment in person with her doctor coming up. She is on no female hormones of any type including implantable devices were control pills, she had a hysterectomy, but no recent hospitalizations, surgeries, long travel, leg pain or swelling, or history of DVT/PE. She takes no prescription medications, just vitamins and vpxk-knu-vqindcu supplements. She has tried no other xgyq-pop-dwedyvc treatments for the symptoms. Recent Illness/Hospitalization: No CVD Risk Factors: Smoking. Negative for: Hypertension, Diabetes, Hypercholesterolemia, Family History 1' </=55 PE Risk Factors: Negative for: Recent Travel/Surgery, Recenet Immobilization, Prior DVT or PE, Cancer, OCP + Smoking + >/=35 - Past Medical History (1) Irritable bowel syndrome Status: Chronic (2) Psoriasis Status: Chronic Past Medical History - Allergies and Home Meds Allergies/Adverse Reactions: Allergies No Known Allergies Allergy (Verified 12/10/18 12:34) Primary Care Physician: Ary Corrales DO [Primary Care Provider] - Surgical History: hysterectomy Lives: With Family Smoking Status: Current every day smoker Drugs: None Review of Systems General: Denies: Chills, Fever, Sweats Eyes: Denies: Visual changes - bilaterally, Diplopia ENT: Reports: - - lump feeling in throat. lump beneath tongue on right. lump on back of tongue. none painful.. Denies: Bilateral ear pain, Rhinorrhea, Sore throat Cardiovascular: Reports: Chest pain. Denies: Palpitations Respiratory: Denies: Dyspnea, Cough, Dyspnea on exertion Gastrointestinal: Denies: Abdominal pain, Nausea, Vomiting, Diarrhea, Melena, Hematochezia Genitourinary: Denies: Dysuria, Hematuria, Frequency Musculoskeletal: Reports: Extremity Pain. Denies: Myalgias, Neck pain, Back pain, Swelling Skin: Reports: Rash - psoriasis patches. Denies: Wounds Neurological: Denies: Headache, Weakness, Numbness Physical Exam Vital Signs/Narrative: Vital Signs Temp Pulse Resp BP Pulse Ox 07/01/19 23:17 98.4 F 89 16 158/99 H 98 Inital Vital Signs reviewed: Yes General: Well nourished, Well developed, No Acute Distress Head: Normocephalic, Atraumatic Eyes: Perrl, EOMI ENT: Moist mucous membranes, No rhinorrhea, TM's clear, - - No tender or swollen salivary glands bilaterally. Mild soft swelling of anterior right sublingual area. No discharge from submandibular gland duct or Stensen's duct. No palpable mass/stone. Mild erythema right tonsillar pillar with tonsils otherwise normal/symmetric, the rest of the posterior oropharynx is normal- appearing. No trismus. Normal-appearing taste buds at the posterior aspect of the tongue along with a small one present at the lateral aspect of the tongue bilaterally which are nontender. Neck: Supple, Nontender, No lymphadenopathy, No JVD Cardiovascular: Regular rate, Regular rhythm, No murmurs, - - Equal bilateral 2+/4 radial pulses Respiratory: No distress, CTA bilaterally, Chest nontender Abdomen: Soft, Nontender, Nondistended, Normal bowel sounds Back: Nontender, Normal Inspection Extremities: Nontender, No edema. Negative for: Calf Tenderness Skin: Normal color, No rash, No Trauma Neurological: Alert, Oriented x3, Cranial nerves II-XII grossly intact, Normal Strength, Normal Sensation, Normal Gait Psychological: Normal affect, Normal Mood Diagnostic/Tx/Re-eval Impressions Chest X-Ray 07/02/19 00:00 IMPRESSION: Normal x-ray examination of the chest. Electronically Signed: Flash Gautam, at 0:52 EDT Tel , Service support , 07/02/19 00:00 Chest PA and Lateral [RAD] Stat Laboratory Results 07/02/19 07/02/19 07/02/19 00:01 00:01 00:01 WBC 9.5 RBC 4.64 Hgb 14.2 Hct 42.3 MCV 91.2 MCH 30.6 MCHC 33.6 RDW Std Deviation 38.4 RDW Coeff of Gino 11.4 L Plt Count 217 MPV 10.5 Immature Gran % (Auto) 0.300 Neut % (Auto) 52.6 Lymph % (Auto) 37.9 Ventura % (Auto) 5.5 Eos % (Auto) 3.4 Baso % (Auto) 0.3 Absolute Neuts (auto) 5.0 Absolute Lymphs (auto) 3.58 Nucleated RBC % 0 D-Dimer Quant (PE/DVT) 0.38 Sodium 139 Potassium 3.4 L Chloride 108 H Carbon Dioxide 26.0 Anion Gap 5 BUN 13 Creatinine 0.77 Estim Creat Clear Calc 103.85 Est GFR (MDRD) Af Amer 110 Est GFR (MDRD) Non-Af 91 BUN/Creatinine Ratio 16.9 Glucose 105 Calcium 9.1 Troponin I < 0.015 - Rhythm Strip Rhythm Strip: Sinus Rhythm Rate: 93 Ectopy: None - EKG Initial EKG Interpretation: Sinus Rhythm, No Acute Injury Pattern - Normal EKG, - - V1-2 RSR' Prior: Unchanged Treatment: Toradol IV, GI Cocktail ARSH Risk: No Positive ARSH Elements Score: 0 - Medical Decision Making Work-up is unremarkable including EKG, troponin, d-dimer, ruling out pulmonary embolus. I suspect that the funny taste she is getting in her mouth/throat could be acid-related and that reflux could be causing her symptoms, and not actually blood at all. Gave her a GI cocktail, she noticed significant improvement in her throat but still has some mild chest discomfort. Pleurisy is in the differential here. I see no evidence of pericarditis, effusion, infiltrate/consolidation, widened mediastinum, pneumothorax. She said that after her chest x-ray, she noticed raising her right upper extremity over her head reproduced her shoulder pain. She did it again on exam, she states she is feeling some crackling in her shoulder when she reaches overhead. She has full range of motion, states it hurts. She has a negative drop sign, negative Yergason sign, no subacromial tenderness, no acromioclavicular tenderness, and no bony tenderness about the right upper extremity/shoulder. I do not think x- rays are necessary right now, if she has a shoulder joint problem such as impingement syndrome, it could be causing those symptoms. I reassured her about everything right now I think it is safe for her to be discharged home. With regards to her asymmetric sublingual swelling, differential includes sialolithiasis. I see no reason to emergently CT this area, I am not suspicious of sialoadenitis. She has no lymphadenopathy or tender salivary glands. I recommend sialagogues to see if it improves the sublingual swelling and we discussed trying that empirically in addition to a PPI that I prescribed her. She was given Toradol prior to discharge for her shoulder, and she is comfortable following up with her doctor with whom she has an appointment. ED Disposition - Plan for ED Patient: Disposition: Home or Assisted Living Diagnosis: Chest pain, atypical, Right shoulder pain Instructions: ED Chest Pain Atypical Unkn Cause, ED Chest Pain Pleurisy Prescriptions: Pantoprazole Sodium [Protonix] 40 mg PO DAILY #30 tab Transmission Status: Pending to [facility] #30 Referrals: Ary Corrales, [Primary Care Provider] - [facility] appointment
--- NOTE | 2019-07-02 | RAD_ITS ---
STUDY: X-RAY CHEST REASON FOR EXAM: Female, 34 years old. pt with throat/ ear pain with reddened areas in mouth along with chest pain that radiates to arm. this has been going on for 1 month. TECHNIQUE: PA and lateral COMPARISON: 12/10/2018 FINDINGS: The lungs are clear and expanded. There is no demonstrated pleural abnormality. Normal size heart. Normal mediastinum and ana paula. Normal visualized pulmonary arteries. Normal visualized aortic arch and descending thoracic aorta. Normal visualized thoracic spine. Normal visualized ribs, clavicles, and shoulders. There is no demonstrated abnormality of the visualized soft tissue structures of the upper abdomen. RAD/Chest PA and Lateral IMPRESSION: Normal x-ray examination of the chest. Electronically Signed: Flash Gautam, at 0:52 EDT Tel , Service support ,
[2019-07-02] MEDS: Mag Hydrox/Al Hydrox/Simeth 30 ML UDC PO (00:10)
[2019-07-02 00:15] LABS: Absolute Lymphocyte Count 3.58 X10^3/uL (0.83-4.51); Basophil# 0.03 X10^3/uL; Basophil% 0.3 % (0-1); Eosinophil# 0.32 X10^3/uL; Eosinophils% 3.4 % (0-5); Hematocrit 42.3 % (37-47); Hemoglobin 14.2 g/dL (12.0-15.0); Lymphocyte # 3.58 X10^3/ul (4.0); Lymphocyte % 37.9 % (19-41); Mean Corp Hgb Conc 33.6 g/dL (32-36); Mean Corpuscular Hgb 30.6 pg (27.0-32.0); Mean Corpuscular Volume 91.2 fL (81-99); Mean Platelet Vol. 10.5 fl (6.2-12.0); Monocyte# 0.52 X10^3/uL; Monocyte% 5.5 % (0-10); NRBC Flagged by Analyzer 0 % (0-5); Neutrophil # 4.97 X10^3/uL (2.7-7.7); Neutrophil % 52.6 % (47-70); Platelet Count 217 K/mm3 (150-450); RBC Distribution Width CV 11.4 % (11.6-14.6); RBC Distribution Width SD 38.4 fl (35.1-43.9); Red Blood Count 4.64 M/mm3 (4.2-5.4); White Blood Count 9.5 K/mm3 (4.4-11.0)
[2019-07-02 00:23] LABS: D-Dimer Quantitative (DVT/PE) 0.38 FEU/ug/m (0.27-0.49)
[2019-07-02 00:30] LABS: Anion Gap 5 (5-15); BUN 13 mg/dL (7-18); BUN/Creat Ratio 16.9 RATIO (10-20); Calcium,Total 9.1 mg/dL (8.5-10.1); Chloride 108 mmol/L (98-107); Creatinine, Serum 0.77 mg/dL (0.55-1.02); EST Glomerular Filtration Rate 91 mL/min (>60); Est Glom Filt Rate - Afr Amer 110 mL/min (>60); Estimated Creatinine Clearance 103.85 ml/min; Glucose 105 mg/dL (74-106); Potassium 3.4 mmol/L (3.5-5.1); Sodium Level 139 mmol/L (136-145)
[2019-07-02] MEDS: Ketorolac 30 MG/ML Syringe IV (01:16)
== END 2019-07-02 01:20 | disposition home or self-care (01) ==
PROVIDERS: Emergency Provider Emergency Medicine; PCP Family Medicine
DX: R07.89 Other chest pain (principal); M25.511 Pain in right shoulder; F17.200 Nicotine dependence, unspecified, uncomplicated
CPT/HCPCS: 71046; 80048; 84484; 85025; 85379; 93005; 96374; 99284

== ENCOUNTER → 2019-10-08 15:13 | Outpatient (CLI) | payer MEDICAID, SELFPAY ==
--- NOTE | 2019-10-08 15:17 | CT_ITS ---
STUDY: CT SOFT TISSUE NECK WITH CONTRAST REASON FOR EXAM: Female, 34 years old. SUBMANDIBULAR MASS, PAIN, CHECK FOR BLOCKED SALIVA GLANDS, LITTLE BUMPS UNDER TONGUE. RADIATION DOSAGE (If Supplied By Facility): CTDIvol = ( 9.92 ) mGy, DLP = ( 281.18 ) mGycm TECHNIQUE: The patient was scanned in a multi-detector CT scanner. High resolution transaxial imaging was performed following intravenous administration of IV 75ML ISOVUE 370. Sagittal and coronal images were reconstructed. Individualized dose optimization techniques were used for this CT. COMPARISON: None. FINDINGS: Normal bilateral parotid glands. Normal bilateral door slinger spaces. Normal bilateral parapharyngeal spaces. Normal bilateral carotid spaces. Normal bilateral sublingual and submandibular glands and spaces. Normal visualized nasopharynx. Normal retropharyngeal space. Normal perivertebral space. Normal visualized bilateral faucial tonsils. The visualized tongue, tongue base and oropharynx are normal. There are 3 subcentimeter lymph nodes in the submental space. Small subcentimeter nodes are also seen in the submandibular spaces. No pathologically enlarged lymph nodes are observed. Normal epiglottis, bilateral vallecula and hypopharynx. The pre-epiglottic and paraglottic adipose spaces are normal. Normal visualized bilateral piriform sinuses, aryepiglottic folds, vocal cords, and arytenoid-cricoid articulations. Normal subglottic trachea. Normal bilateral lobes of the thyroid gland. Normal visualized pulmonary apices. Normal visualized paranasal sinuses. Normal visualized cervical spine. CT/Soft Tissue Neck WITH Contrast IMPRESSION: Normal enhanced CT examination of the soft tissues of the neck. Electronically Signed: Mode Humphreys MD at 16:01 EDT , Service support ,
== END ==
PROVIDERS: PCP Family Medicine; Referring Provider Otolaryngology Otolaryngology/Facial Plastic Surgery; Visit Provider Otolaryngology Otolaryngology/Facial Plastic Surgery
DX: R22.0 Localized swelling, mass and lump, head (principal)
CPT/HCPCS: 70491; Q9967

== ENCOUNTER 2020-01-01 12:09 | Emergency (ER) | payer MEDICAID, SELFPAY ==
[2020-01-01 12:09] VITALS: BP 144/87; PULSE 78; RESP 16; TEMP 36.3; O2SAT 100; BMI 26.4
[2020-01-01 13:20] VITALS: BP 130/85; PULSE 69; RESP 12; O2SAT 99
--- NOTE | 2020-01-01 13:20 | EKG12_ITS ---
Test Reason : CP Blood Pressure : / mmHG Vent. Rate : 073 BPM Atrial Rate : 073 BPM P-R Int : 156 ms QRS Dur : 108 ms QT Int : 412 ms P-R-T Axes : 078 087 067 degrees QTc Int : 453 ms Normal sinus rhythm Possible Left atrial enlargement RSR' or QR pattern in V1 suggests right ventricular conduction delay Borderline ECG Confirmed by HERMINIA FERREIRA, CHRISTOPHER ([id number]), loan expeditor RHONDA BROWN ([id number]) on 01/06/2020 12:26:19 PM Referred By: BRAYAN Confirmed By:CHRISTOPHER HOPE MD
[2020-01-01] MEDS: Aspirin 81 MG TAB.CHEW 324 MG PO (13:40)
[2020-01-01] MEDS: 0.9% Normal Saline 1,000 ML 150 ML IV (13:40)
[2020-01-01 13:43] VITALS: O2SAT 98
[2020-01-01 13:43] LABS: Absolute Lymphocyte Count 2.61 X10^3/uL (0.83-4.51); Absolute Neutrophil Count 3.9 X10^3/uL (2.0-7.7); Basophil# 0.03 X10^3/uL; Basophil% 0.4 % (0-1); Eosinophils% 2.8 % (0-5); Hematocrit 41.5 % (37-47); Hemoglobin 14.1 g/dL (12.0-15.0); Lymphocyte # 2.61 X10^3/ul (4.0); Lymphocyte % 36.4 % (19-41); Mean Corpuscular Hgb 31.2 pg (27.0-32.0); Mean Corpuscular Volume 91.8 fL (81-99); Mean Platelet Vol. 10.4 fl (6.2-12.0); Monocyte# 0.45 X10^3/uL; Monocyte% 6.3 % (0-10); NRBC Flagged by Analyzer 0 % (0-5); Neutrophil # 3.88 X10^3/uL (2.7-7.7); Platelet Count 218 K/mm3 (150-450); RBC Distribution Width CV 11.4 % (11.6-14.6); RBC Distribution Width SD 38.7 fl (35.1-43.9); Red Blood Count 4.52 M/mm3 (4.2-5.4); White Blood Count 7.2 K/mm3 (4.4-11.0)
--- NOTE | 2020-01-01 13:50 | RAD_ITS ---
STUDY: X-RAY CHEST REASON FOR EXAM: Female, 34 years old. Chest pain x 1 month, worse today, light headed, fatigue TECHNIQUE: Single AP portable view of the chest. COMPARISON: Comparison is made with prior study dated 07/02/2019. FINDINGS: EKG electrodes are seen. Hyperinflation. The lungs are clear. There is no demonstrated pleural abnormality. Normal size heart. Normal mediastinum and ana paula. Normal visualized pulmonary arteries. Normal visualized aortic arch and descending thoracic aorta. Normal visualized thoracic spine. Normal visualized ribs, clavicles, and shoulders. There is no demonstrated abnormality of the visualized soft tissue structures of the upper abdomen. RAD/Chest 1 View (Portable) IMPRESSION: Normal x-ray examination of the chest. Electronically Signed: Efraín Cesar, at 14:24 EDT , Service support ,
[2020-01-01 14:02] LABS: Anion Gap 4 (5-15); BUN 13 mg/dL (7-18); BUN/Creat Ratio 14.2 RATIO (10-20); Calcium,Total 9.5 mg/dL (8.5-10.1); Chloride 108 mmol/L (98-107); Creatinine, Serum 0.91 mg/dL (0.55-1.02); EST Glomerular Filtration Rate 75 mL/min (>60); Est Glom Filt Rate - Afr Amer 90 mL/min (>60); Estimated Creatinine Clearance 87.87 ml/min; Glucose 85 mg/dL (74-106); Potassium 3.5 mmol/L (3.5-5.1); Sodium Level 140 mmol/L (136-145)
[2020-01-01 14:08] VITALS: BP 108/68; PULSE 87; RESP 16; O2SAT 98
[2020-01-01 14:08] LABS: D-Dimer Quantitative (DVT/PE) 1.14 FEU/ug/m (0.27-0.49)
--- NOTE | 2020-01-01 14:34 | CT_ITS ---
STUDY: CTA CHEST REASON FOR EXAM: Female, 34 years old. CP X 1 MO, WORSE TODAY. LIGHT HEADED, FATIGUE. ELEV D-DIMER RADIATION DOSAGE (If Supplied By Facility): CTDIvol = ( 7.735 ) mGy, DLP = ( 244.03 ) mGycm TECHNIQUE: The examination was performed with the intravenous administration of IV 100mL Isovue-370. Post-processing of the angiographic images was performed, with multiplanar reformation and 3D reconstruction. Individualized dose optimization techniques were used for this CT. COMPARISON: None. FINDINGS: Normal enhancement of the main pulmonary artery and right and left pulmonary arteries. Normal enhancement of the bilateral peripheral pulmonary arteries. There is no demonstrated pulmonary embolism. Normal thoracic aorta and visualized great vessels. There is no demonstrated aortic dissection. Normal heart and pericardium. Normal mediastinum. Normal hilar regions. Normal visualized trachea and bronchi. The lungs are well expanded. Normal pulmonary parenchyma. Normal pleura. Normal chest wall structures. Normal osseous structures. Normal visualized upper abdomen. CT/CTA Chest W/WO Contrast IMPRESSION: Normal CTA chest examination, without a demonstrated pulmonary embolism or arterial dissection. Electronically Signed: Efraín Cesar, at 15:21 EDT , Service support ,
[2020-01-01 15:07] VITALS: BP 120/72; PULSE 75; RESP 15; O2SAT 100
--- NOTE | 2020-01-01 15:29 | ED.VISSUMM ---
- ER Visit Summary Date of Service: 01/01/20 Chief Complaint: [Chest pain] History of Present Illness: The patient is a 34 F [presents to the emergency department chest discomfort that she has had for about a month continuously. Patient states the pain is in her left chest underneath her breast and over the area of the sternum. Pain does not radiate. Pain worse at times with certain movements like when she goes to the gym and moves certain ways. She was seen at [facility] and had an EKG about a week ago and she was told it was unremarkable. Her primary care physician has ordered a outpatient echocardiogram to be done January 26. Today while at work she had increased discomfort in her chest. She felt somewhat nauseated with it. She denied any shortness of breath. She denies recent travel or surgery. She is not on any hormone replacement. Patient does have history of IBS as well as psoriasis and anxiety.] No exposures to COVID-19. No significant cough or fever. Physical Examination: [HEENT-PERRLA, EOMI. Cranial nerves II through XII grossly intact. TMs clear. Mucous membranes moist. No adenopathy. Cardiovascular-regular rate and rhythm without murmur or ectopy Lungs-clear to auscultation, chest wall stable without crepitus or subcu emphysema. Patient does have tenderness palpation over the area of the sternum and inferior to her left breast that somewhat reproduces her pain. Abdomen-normoactive bowel sounds, soft, nontender, no rebound or rigidity, no peritoneal signs. Extremities-intact ?4, normal range of motion, normal pulses, atraumatic] Test Results: [EKG obtained on arrival shows sinus rhythm with a ventricular rate of 73 bpm with no acute significant ST changes noted. CBC with differential showed a white of 7.2, hemoglobin 14, hematocrit 41.5, placed 218. Chemistries unremarkable. Troponin is less than 0.015. D-dimer was elevated at 1.14. Chest x-ray was normal. CTA of the chest obtained was normal.] Emergency Department Course and Treatment: [IV line established on arrival. Patient placed on a campus monitor.] Treatment Plan: [Patient will be given a prescription for naproxen. She is also advised to use [id number] Pepcid for the next couple weeks. Patient to follow-up with her primary care physician within the next 5 to 7 days. She is to keep her appointment to have the echocardiogram done. Patient advised to return if worsening pain, increasing shortness of breath, or condition should worsen anyway.] Disposition: [Discharged home in stable condition] Impression: [Atypical chest pain-etiology uncertain] This note was generated with [employer] dictation software. It may contain incorrect words, spelling, and punctuation that were not noted in review of the chart prior to signing ED Disposition - Plan for ED Patient: Referrals: Ary Corrales DO [Primary Care Provider] -
--- NOTE | 2020-01-01 15:32 | ED.DEP ---
ED Disposition - Plan for ED Patient: Instructions: ED Chest Pain Atypical Unkn Cause Prescriptions: Naproxen [Naprosyn] 500 mg PO BID PRN #20 tab Prescription Printed Referrals: Ary Corrales DO [Primary Care Provider] - 5-7 Days
[2020-01-01 15:37] VITALS: BP 133/62; PULSE 72; RESP 16; O2SAT 100
== END 2020-01-01 15:40 | disposition home or self-care (01) ==
PROVIDERS: Emergency Provider Emergency Medicine; PCP Family Medicine
DX: R07.89 Other chest pain (principal); K58.9 Irritable bowel syndrome, unspecified; L40.9 Psoriasis, unspecified; Z87.891 Personal history of nicotine dependence
CPT/HCPCS: 71045; 71275; 80048; 84484; 85025; 85379; 93005; 96360; 96361; 99284; J7030; Q9967; A4216

== ENCOUNTER 2021-07-15 02:12 | Emergency (ER) | payer MEDICAID, SELFPAY ==
[2021-07-15 02:13] VITALS: BP 167/95; PULSE 97; RESP 18; TEMP 36.2; O2SAT 100; BMI 30.8
--- NOTE | 2021-07-15 02:28 | RAD_ITS ---
STUDY: X-RAY - RIGHT FOOT CLINICAL: Female, 36 years old. pain TECHNIQUE: 3 view(s) of the foot. COMPARISON: None. FINDINGS: Normal talus, calcaneus, and tarsal bones. Normal visualized subtalar, talonavicular, calcaneocuboid, tarsal and tarsometatarsal articulations. Normal metatarsi. Normal metatarsophalangeal joint of the great toe. Normal tibial and fibular sesamoid bones. Normal interphalangeal joint of the great toe. Normal phalanges of the great toe. Normal second through fifth metatarsophalangeal joints. Normal interphalangeal joints and phalanges of the lesser toes. The soft tissue structures are unremarkable. RAD/Foot min 3 Views IMPRESSION: Normal x-ray examination of the foot. Electronically Signed: Romulo Sharma MD at 3:36 EDT ,
--- NOTE | 2021-07-15 02:28 | EDS_ITS ---
HPI History of Present Illness Chief Complaint: Lower Extremity Injury Narrative Narrative: Patient is a 36-year-old female who states approximately 2 weeks ago she accidentally kicked a picnic table when she was going to strike a ball instead. She states she had shoes on at the time of injury but within a few minutes after trauma had bruising pain and swelling. She states that despite giving the injury time to heal and icing it she has been having consistent pain and makes it difficult to walk. She does have concern for underlying fracture and secondary to this presents for evaluation [facility] Home Medications docusate sodium [Stool Softener] 500 mg PO DAILY 07/15/21 [History Last Taken Unknown] vitamin E unit PO 07/15/21 [History Last Taken Unknown] Allergy/AdvReac Type Severity Reaction Status Date / Time No Known Allergies Allergy Verified 01/01/20 12:11 Social History Smoking Status: Current every day smoker tobacco type: cigarettes ROS ROS ED Constitutional Constitutional ED: Denies chills or fever(s) ENT ENT ED: Denies sore throat Cardiovascular Cardiovascular: Denies chest pain Respiratory/Chest Respiratory/Chest: Denies cough or dyspnea Gastrointestinal Gastrointestinal: Denies abdominal pain, diarrhea, nausea or vomiting Genitourinary Genitourinary ED: Denies dysuria Musculoskeletal Musculoskeletal: Reports other Details: Positive right foot pain ; Denies myalgias Integumentary Denies Abrasions or rash Neurologic Neurologic: Denies headache(s) or paresthesias Hematologic/Lymphatic Hematologic/Lymphatic: Denies easy bleeding or easy bruising EXAM Physical Exam Const Vital Signs: 07/15/21 02:13 Temperature 97.2 F L Temperature Source Temporal Pulse Rate 97 Respiratory Rate 18 Blood Pressure 167/95 H Blood Pressure Mean 119 Pulse Ox 100 Oxygen Delivery Method Room Air Positive well nourished and well developed General Appearance ED: well developed Eyes PERRL and EOMs intact bilaterally Neck supple Resp normal respiratory effort and clear to auscultation bilaterally Cardio regular rate and regular rhythm Extremity Extremity Narrative: Right lower extremity is neurovascularly intact. There is mild soft tissue swelling to the dorsal aspect of the right foot over top the first and second MTP. There is mild ecchymosis at the site. There is pain with palpation but no obvious bony deformity or joint effusion. No ligamentous laxity or obvious tendon injury. Remainder of the exam is normal. Neuro oriented x3 and CN's II-XII intact bilaterally Sensorium / Orientation: alert Motor Exam: strength 5/5 throughout Psych mental status grossly normal Skin no rashes or lesions noted Skin Narrative: Soft tissue changes to the right foot as documented above MDM MDM MDM Narrative Medical decision making narrative: Patient presented to the ER 2 weeks after her initial injury. Despite this timeframe she still has soft tissue swelling and pain on palpation. There is no obvious signs of infection or physical exam findings to suggest ligamentous or tendon damage. There is concern she has a persistent fracture secondary to her pain and swelling and therefore an x-ray was ordered. X-ray of the foot revealed no acute fracture or dislocation. Therefore patient will be diagnosed with a foot contusion but based on the prolonged timeframe of her symptoms I do feel there is most likely a small stress fracture as the cause of her persistent pain. Therefore patient be placed in a walking boot to help with stabilization and weightbearing but is otherwise safe for discharge Radiography Diagnostic Testing: Clinical Impression(s) from Imaging Studies Foot X-Ray 07/15/21 02:28 IMPRESSION: Normal x-ray examination of the foot. Electronically Signed: Romulo Sharma MD at 3:36 EDT , Three-view x-ray of the right foot reveals no acute fracture or dislocation Discharge Plan Triage Chief Complaint: Lower Extremity Injury ED Provider: Johnathan Dixon Dx/Rx/DC Orders Clinical Impression: Contusion of foot, right Instructions: Stress Fracture, ED Foot Contusion Prescriptions: No Action docusate sodium [Stool Softener] 250 mg Capsule 500 mg PO DAILY RF: 0 vitamin E 30 unit Capsule PO RF: 0 Primary Care Provider: Ary Corrales Referrals: Lavelle Weiss DO [STAFF PHYSICIAN] - 3-5 Days Ary Corrales DO [Primary Care Provider] - Disposition Disposition: Home, Self Care
[2021-07-15 03:58] VITALS: BP 124/74; PULSE 78; RESP 16; O2SAT 97
== END 2021-07-15 04:01 | disposition home or self-care (01) ==
PROVIDERS: Emergency Provider Emergency Medicine; PCP Family Medicine; Visit Provider Emergency Medicine
DX: S90.31XA Contusion of right foot, initial encounter (principal); W22.09XA Striking against other stationary object, initial encounter; Y93.89 Activity, other specified; Y99.8 Other external cause status; F17.210 Nicotine dependence, cigarettes, uncomplicated
CPT/HCPCS: 73630; 99283

== ENCOUNTER → 2023-01-02 | Outpatient (CLI) | payer MEDICAID, SELFPAY | END | disposition home or self-care (01) | LOC: LABSPEC 17:10 | PROVIDERS: PCP Family Medicine; Referring Provider Otolaryngology Otolaryngology/Facial Plastic Surgery; Visit Provider Otolaryngology Otolaryngology/Facial Plastic Surgery | DX: J02.9 Acute pharyngitis, unspecified (principal) | CPT/HCPCS: 87070 ==